=== PATIENT | male | born 1940 | race Caucasian/White ===

== ENCOUNTER 2023-10-25 19:02 | Inpatient (IN) | payer MEDICARE, BC, SELFPAY ==
[2023-10-25 19:05] VITALS: BMI 25.2
--- NOTE | 2023-10-25 19:12 | PM.HP ---
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 Patient stating that 2 days ago he had a horrible oily pizza at that aggravated his symptoms of acid reflux, GERD he was experiencing chest discomfort with fullness and bloating which was not getting better he also felt some pain in his left arm, he tolerated this pain all night, in the morning his convinced him to go to the ER, patient is stating that his real bothering symptoms started 1 month ago with dry hacking cough, he has been tested for COVID which was negative, he has not noticed any fever, malaise, today had 1 loose stool. At the [facility] he was diagnosed with non-STEMI, he has been transferred to our facility for management evaluation of non-STEMI and cardiac cath. Dr. Smith is aware. At the time of my evaluation patient is tachycardic with multiple PVCs on telemetry, no active chest pain, I have removed Nitropaste. He is hemodynamically stable. Patient does not smoke or drink alcohol, no previous history of CHF or coronary artery disease Review of Systems Const: Denies: fever(s) Eyes: Denies: change in vision ENMT: Denies: throat pain Card: Reports: chest pain Resp: Reports: dyspnea GI: Denies: abdominal pain : Denies: flank pain Musc: Denies: neck pain Skin/Breast: Denies: rash PFSH Acute PFSH: Medical History (Updated 10/25/23 @ 19:42 by Dany Brizuela MD) GERD (gastroesophageal reflux disease) Gout Surgical History (Updated 10/25/23 @ 19:43 by Dany Brizuela MD) No pertinent past surgical history Family History (Updated 10/25/23 @ 19:43 by Dany Brizuela MD) Denies family history of CAD (coronary artery disease) Social History (Updated 10/25/23 @ 19:43 by Dany Brizuela MD) Smoking and tobacco/nicotine status: former use of tobacco/nicotine Alcohol intake: never Substance/Drug Use: never Physical Exam Narrative: Awake and alert No active signs of fluid overload GCS 15 No active chest pain Present elderly male Appears stated age No audible stridor or wheezing Currently doing well on room air S1, S2 A&P Assessment and plan (1) NSTEMI (non-ST elevated myocardial infarction): (2) PVC (premature ventricular contraction): Plan Non-STEMI N.p.o. after midnight Dr. Mendiola consulted Will give him starting dose of Plavix 300 mg then maintenance dose Continue aspirin along atorvastatin Request D-dimer A1c level and TSH Serial troponin and EKG Echo requested No active chest pain will do IV morphine along nitroglycerin for as needed use Remove Nitropaste Patient has been experiencing dry hacking cough will request respiratory panel Patient is stating that he tested negative for COVID when he tested at home BNP at at the outside facility was 10,000, will request another clinically does not look fluid overloaded I will hold off on giving him Lasix, will start him normal saline in anticipation of angiogram in the morning N.p.o. after midnight Full code DVT prophylaxis covered with therapeutic Lovenox Attestations Medical Necessity Statement*: More than 2 midnights anticipated Diagnoses NSTEMI (non-ST elevated myocardial infarction) I21.4 PVC (premature ventricular contraction) I49.3
--- NOTE | 2023-10-25 19:15 | ECG_ITS ---
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 Measurements Intervals [place] Rate: 107 P: 3 [place]: 142 QRS: 35 QRSD: 156 T: 29 QT: 364 QTc: 488 Interpretive Statements SINUS TACHYCARDIA WITH OCCASIONAL VENTRICULAR PREMATURE COMPLEXES POSSIBLE LEFT ATRIAL ENLARGEMENT [-0.1mV P-WAVE IN V1/V2] LEFT BUNDLE BRANCH BLOCK [120+ ms QRS DURATION, 80+ ms Q/S IN V1/V2, 85+ ms R IN I/aVL/V5/V6] No previous ECG available for comparison Electronically Signed On 10-26-2023 9:58:52 PROJECT ARCHIVIST by Nathan Smith M.D. [id number]
[2023-10-25 19:54] VITALS: BP 146/90; PULSE 111; RESP 19; TEMP 36.3; O2SAT 96
[2023-10-25] MEDS: clopidogrel 300 mg Tablet PO (20:34)
[2023-10-25] MEDS: enoxaparin 100 mg/mL Syringe 80 MG SUBCUT (20:34)
[2023-10-25 20:36] VITALS: PULSE 107; RESP 16; O2SAT 93
[2023-10-25] MEDS: sodium chloride 0.9% 1,000 ML 75 ML IV (20:38)
--- NOTE | 2023-10-25 20:41 | XRR_ITS ---
PROCEDURE INFORMATION: Exam: XR Chest Exam date and time: 10/25/2023 9:53 PM Age: 83 years old Clinical indication: Patient HX: Cough; SOB; Non stemi mi TECHNIQUE: Imaging protocol: Radiologic exam of the chest. Views: 1 view. COMPARISON: No relevant prior studies available. FINDINGS: Lungs: Fullness in the pulmonary vasculature suggesting volume overload in the lungs. Pleural spaces: Small left pleural effusion. No pneumothorax. Heart/Mediastinum: Cardiac silhouette is markedly enlarged. Mediastinal contours are unremarkable. Vasculature: Stable vascular calcifications in the aorta. Bones/joints: Unremarkable for age. XR/XR chest 1V portable [id number] IMPRESSION: 1. Fullness in the pulmonary vasculature suggesting volume overload in the lungs. 2. Small left pleural effusion. 3. Incidental/nonacute findings are listed in the report.
[2023-10-25 21:25] LABS: Troponin(5th) Baseline 1198 ng/L (0-15)
[2023-10-25] MEDS: guaiFENesin 100 mg/5 mL UDC 10 mL 200 MG PO (21:38)
[2023-10-25 21:47] LABS: Anion Gap 17.2 (5-19); Blood Urea Nitrogen 31 mg/dL (8-23); Calcium 8.8 mg/dL (8.5-10.5); Carbon Dioxide 21 mmol/L (22-29); Chloride 104 mmol/L (98-107); Glucose 104 mg/dL (65-115); NT Pro B Type Natriuretic Pept 7921 pg/mL (0-450); Osmolality Calculated 293 mOsm/kg (285-295); Potassium 4.2 mmol/L (3.5-5.1); Sodium 138 mmol/L (136-145); Thyroid Stimulating Hormone 3.77 uIU/mL (0.27-4.20)
[2023-10-25 22:11] LABS: Estmated Average Glucose 97
[2023-10-25 22:18] LABS: Troponin 5 2HR 1120 ng/L (0-15); Troponin 5 2HR Delta -78 ABS# (0-10)
[2023-10-25 23:02] LABS: Adenovirus Not Detected (NOT DETECT); Chlamydia Pneumoniae Not Detected (NOT DETECT); Coronavirus 229E,HKU1,NL63,OC4 Not Detected (NOT DETECT); Human Metapneumovirus Not Detected (NOT DETECT); Human Rhinovirus/Enterovirus Not Detected (NOT DETECT); Influenza A Not Detected (NOT DETECT); Influenza A H1 Not Detected (NOT DETECT); Influenza A H1-2009 Not Detected (NOT DETECT); Influenza A H3 Not Detected (NOT DETECT); Influenza B Not Detected (NOT DETECT); Mycoplasma Pneumoniae Not Detected (NOT DETECT); Parainfluenza Virus Type 1 Not Detected (NOT DETECT); Parainfluenza Virus Type 2 Not Detected (NOT DETECT); Parainfluenza Virus Type 3 Not Detected (NOT DETECT); Parainfluenza Virus Type 4 Not Detected (NOT DETECT); Respiratory Syncytial Virus A Not Detected (NOT DETECT); Respiratory Syncytial Virus B Not Detected (NOT DETECT); SARS-COV-2 Not Detected (NOT DETECT)
[2023-10-26] VITALS (57 sets, daily range): BP systolic 109–162; BP diastolic 68–105; PULSE 81–124; RESP 16–32; TEMP 36.4–36.8; O2SAT 89–100
[2023-10-26 01:17] LABS: Basophils % 0.1 %; Eosinophils # 0.1 10^3/uL (0.0-0.8); Lymphocytes # 1.3 10^3/uL (0.8-4.8); Lymphocytes % 17.3 %; Mean Corpuscular HGB Conc 33.2 g/dL (30-55); Mean Corpuscular Hemoglobin 31.8 pg (27-33); Mean Corpuscular Volume 95.6 fl (82-101); Mean Platelet Volume 11.3 fL (7.4-10.4); Monocytes # 0.7 10^3/uL (0.2-0.9); Monocytes % 9.7 %; Neutrophils # 5.23 10^3/uL (1.8-7.7); Neutrophils % 71.8 %; Nucleated Red Blood Cells % 0 %; Platelet Count 150 10^3/cmm (157-399); Red Blood Count 3.87 10^6/uL (3.85-5.65); Red Cell Distribution Width 14.5 % (12.1-15.1); White Blood Count 7.29 10^3/uL (3.29-11.43)
--- NOTE | 2023-10-26 01:24 | ECG_ITS ---
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 Measurements Intervals [place] Rate: 98 P: 21 [place]: 164 QRS: 68 QRSD: 160 T: 0 QT: 386 QTc: 495 Interpretive Statements SINUS RHYTHM WITH OCCASIONAL VENTRICULAR PREMATURE COMPLEXES POSSIBLE LEFT ATRIAL ENLARGEMENT [-0.1mV P-WAVE IN V1/V2] INTRAVENTRICULAR CONDUCTION DELAY [130+ ms QRS DURATION] Compared to ECG 10/25/2023 20:40:23 Intraventricular conduction delay now present Sinus tachycardia no longer present Left bundle-branch block no longer present Electronically Signed On 10-26-2023 10:00:34 CLINIQUE COUNTER MANAGER by Nathan Smith M.D. [id number]
[2023-10-26 01:37] LABS: Anion Gap 16.2 (5-19); Blood Urea Nitrogen 32 mg/dL (8-23); Calcium 8.6 mg/dL (8.5-10.5); Carbon Dioxide 21 mmol/L (22-29); Chloride 105 mmol/L (98-107); Glucose 117 mg/dL (65-115); Osmolality Calculated 294 mOsm/kg (285-295); Phosphorus 2.8 mg/dL (2.5-4.5); Potassium 4.2 mmol/L (3.5-5.1); Sodium 138 mmol/L (136-145)
[2023-10-26 01:44] LABS: Troponin 5 6HR 1081 ng/L (0-15); Troponin 5 6HR Delta -117 ng/L (0-12)
[2023-10-26 01:49] LABS: Vitamin B12 > 2000 pg/mL (232-1245)
--- NOTE | 2023-10-26 06:00 | USCV_ITS ---
Evangelist Gale Age: 83 Gender: M : 1940 Exam Date: 10/26/2023 07:07 Ordering Phys: Dayn Brizuela MD Technologist: Alexandru Dahl Exam Location: [facility] [place] Indication: nstemi BP: 130 / 84 HR: 105 Rhythm: Other Technical Quality: Adequate MEASUREMENTS (Male / Female) Normal Values 2D ECHO LVOT Diameter 2.3 cm LV Ejection Fraction MOD 2C 23.4 % LV Ejection Fraction 2C AL 23.9 % LA Diameter 4.0 cm LA Width 4.4 cm LA Height 6.1 cm RA Width 5.1 cm RA Height 5.7 cm Aorta at Sinotubular Diameter 3.0 cm IVC Diameter 2.1 cm M-MODE Aortic Annulus Diameter 3.3 cm LA Ao Ratio MM 1.2 MV E Point Septal Separation 1.4 cm DOPPLER AV Peak Velocity 116.3 cm/s LVOT Peak Velocity 74.0 cm/s AV Area Cont Eq vti 2.3 cm squared AV Area Cont Eq pk 2.6 cm squared MV Peak Velocity 108.0 cm/s MV Area PHT 8.1 cm squared Mitral E to A Ratio 1.6 MV E' Velocity 48.0 cm/s Mitral E to MV E' Ratio 13.2 Mitral E to LV E' Lateral Ratio 8.5 Mitral E to LV E' Septal Ratio 29.5 TR Peak Velocity 318.9 cm/s TR Peak Gradient 40.7 mmHg TR Mean Velocity 235.5 cm/s TR Mean Gradient 26.2 mmHg TR Velocity Time Integral 93.2 cm Right Atrial Pressure 3.0 mmHg Pulmonary Artery Systolic Pressu 43.7 mmHg PV Peak Velocity 73.0 cm/s RV Acceleration Time 0.1 s RV Ejection Time 0.2 s RV AcT/ET 0.4 FINDINGS Left Ventricle Left ventricle is normal in size. LV systolic function is severely reduced with EF of 20 to 25%. Severe global hypokinesis seen. Right Ventricle Grossly hypokinetic Right Atrium Dilated Left Atrium Severely dilated Mitral Valve Structurally normal mitral valve. Moderate to severe mitral regurgitation. Aortic Valve Aortic valve is thickened and calcified. Mild aortic regurgitation. No significant stenosis. Tricuspid Valve Mild tricuspid regurgitation. RVSP is 40 to 45 mmHg. This is consistent with mild pulmonary hypertension Pulmonic Valve Not well-visualized. Mild pulmonic regurgitation. Pericardium Normal Aorta Dilated with ascending aortic diameter of 4.02cm. IVC Appears to be normal CONCLUSIONS LV systolic function is severely reduced with EF of 20 to 25%. RV is grossly hypokinetic. Biatrial enlargement. Moderate to severe mitral regurgitation. Mild aortic regurgitation Mild tricuspid regurgitation. Mild pulmonary hypertension. Mild pulmonic regurgitation Ascending aorta is dilated with diameter of 4.02 cm No comparison studies are available Nathan Smith MD (Electronically Signed) Final Date: 26 October 2023 10:40 S
[2023-10-26] MEDS: enoxaparin 100 mg/mL Syringe 80 MG SUBCUT (06:21)
--- NOTE | 2023-10-26 07:12 | PM.CONSULT ---
Providers/Reason For Consult Consulting Physician/Specialty*: Nathan Smith MD/ Cardiology Reason for Consult*: NSTEMI Requesting Physician: Dr Brizuela Attending Physician: Dany Brizuela MD History of Present Illness History of Present Illness Evangelist Gale is a 83 year old male with no prior significant cardiac history presented to OSH with shortness of breath. According to patient, he had been noticing mild shortness of breath for a month but had significant burning chest pain 2 days before which lasted several hours. Since then has significant shortness of breath. He did not seek medical attention at that time. On presentation his troponin was signifcantly elevated (over 1100 here) and EKG showed sinus tachycardia with left bundle branch block. He was given lasix. Creatinine is elevated. No active chest pain. Review of Systems Const: Denies: fever(s) Eyes: Denies: change in vision ENMT: Denies: throat pain Card: Denies: chest pain Resp: Reports: dyspnea GI: Denies: abdominal pain : Denies: flank pain Musc: Denies: neck pain Skin/Breast: Denies: rash Medications/Allergies Home Medications Medication Instructions Recorded Confirmed Last Taken Type allopurinol 100 mg tablet 100 mg PO BEDTIME 10/25/23 10/25/23 Unknown History cimetidine 200 mg tablet 200 mg PO BEDTIME 10/25/23 10/25/23 Unknown History vit B6-mag cit,ox-potassium cit 2 tab PO BID 10/25/23 10/25/23 Unknown History 3.75 mg-45 mg-45 mg-49.5 mg tablet ER (Theralith XR) Allergies Allergy/AdvReac Type Severity Reaction Status Date / Time No Known Allergies Allergy Verified 10/25/23 20:03 Current Medications Generic Name Dose Route Start Last Admin Trade Name Freq PRN Reason Stop Dose Admin Enoxaparin Sodium 80 mg 10/25/23 19:15 10/26/23 06:21 Enoxaparin 100 Mg/Ml Syringe 1 mg/kg (80 mg) 80 mg SUBCUT Administration Q12H [facility] Guaifenesin 200 mg 10/25/23 20:41 10/25/23 21:38 Guaifenesin 100 Mg/5 Ml Udc 10 Ml PO 200 mg Q4H PRN Administration COUGH AND CONGESTION Sodium Chloride 1,000 mls @ 75 mls/hr 10/25/23 19:45 10/25/23 20:38 Sodium Chloride 0.9% IV 75 mls/hr .[id number] KARAN Administration PFSH Acute PFSH: Medical History GERD (gastroesophageal reflux disease) Gout Surgical History No pertinent past surgical history Family History Denies family history of CAD (coronary artery disease) Social History Smoking and tobacco/nicotine status: former use of tobacco/nicotine Alcohol intake: never Substance/Drug Use: never Vitals/I&O/Wt Last Vital Signs Temp 98.2 F 10/26/23 04:00 Pulse 104 H 10/26/23 06:00 Resp 18 10/26/23 04:00 BP 130/84 10/26/23 04:00 Pulse Ox 96 10/26/23 04:00 O2 Del Method Room Air 10/26/23 04:00 10/25/23 10/26/23 10/26/23 22:59 06:59 14:59 Intake Total 200 / 200 Balance 200 / 200 Weight last 48 hrs Weight 163 lb 9.6 oz Weight 169 lb Weight 165 lb 14.4 oz Physical Exam Const: COMMON NORMALS: patient oriented x3 OTHER: Alert and oriented x 3. Appears visibly short of breath Resp: OTHER: Clear to auscultation. Diminshed air entry Cardio: OTHER: Tachycardia. Grade 3/6 systolic murmur Extremity: NARRATIVE EXTREMITY EXAM: No lower extremity edema Neuro: COMMON NORMALS: patient oriented x3 and no focal motor deficits Data 10/27/23 02:01 10/27/23 02:01 A&P Assessment and plan (1) CHF (congestive heart failure): (2) NSTEMI (non-ST elevated myocardial infarction): Plan Patient's symptoms, troponin and EKG are consistent with delayed NV presentation. We will proceed with coronary angigoram with possibel percutaneous coronary intervention. NPO for now Continue dual antiplatelet therapy with aspirin and plavix Hold off on lasix till angiogram. He is on room air and able to lay down flat. Echo shows severely reduced LV function with moderate to severe mitral regurgitation. Further recommendations based on Cath findings Thank you for involving us with care of this patient. We will continue to follow. Please call with questions Consult Attestations Medical Necessity Statement: Care expected to cross 2 midnights. Coding Level of Care Code Acute Code for [facility] Fwd Diagnoses CHF (congestive heart failure) I50.9 NSTEMI (non-ST elevated myocardial infarction) I21.4
--- NOTE | 2023-10-26 07:52 | XACV_ITS ---
Exam Room: [facility] Ht: 173 cm Wt: 74 kg BSA: 1.89 m2 Gender: Male : 1940 Any Known Allergies: No known allergies Exam Priority: Routine Procedure(s): Procedure Description: Diagnostic procedure Procedure Description: Left Heart Catheterization Procedure Description: Coronary Angiography Diagnostic Cath Status: Urgent Diagnostic Findings * Left Main has no significant disease. * Left Anterior Descending has mild luminal irregularities. * Circumflex is patent. * Proximal Right Coronary Artery: minimal 30% stenosis, SONG: 3 flow. * Coronary angiography shows right dominance. Conclusions 1. Non-obstructive CAD.. 2. NSTEMI vs Myocarditis. Recommendations * Continue dual antiplatelet therapy. We will continue with atorvastatin and beta-eran. * Complete anticoagulation for 48 hours. * Patient may need cardiac MRI to assess for myocarditis. Can be done as outpatient if stable. Interventional RX Recommendation: medical therapy and/or counseling Diagnostic RX Recommendation: medical therapy and/or counseling Pressures Phase:Rest AO : 116 / 63 ( 81 ) @ 10:08:00 AM 111 / 65 ( 82 ) @ 10:17:00 AM 111 / 66 ( 82 ) @ 10:17:00 AM LV : 109 / 0 / 24 @ 10:16:00 AM 110 / 1 / 25 @ 10:17:00 AM Valves Phase:DefaultPhase AV : 2.0 @ 10:21:02 AM AV Mean Gradient: 0.0 @ 10:21:02 AM Clinical Evaluation EBL: 5mL-10mL Procedural Details Pre-Procedure Time Out. Identified patient by full name and date of as verbalized by the patient/guarantor. Does the consent match the physician's order: Yes. Accurate & Complete Informed Consent: Yes. Inpatient/Outpatient History & Physical on Chart: Yes. If H&P is completed, is and addenduem needed: No; If yes, is the addendum complete: N/A. Visualize and Verify Site with Patient/Guarantor: N/A. Relevant Radiology Images available: N/A. Pre-op teaching completed and patient verbalized understanding. The risks, benefits, and alternatives of sedation and/or procedure were discussed by physician. The patient agrees to continue. Procedure started. [facility] Clinical Fraility Score: 3: Managing Well. Explosives Mixer Operator Indications: ACS > 24 hours. Chest Pain Symptom Assessment: Typical Angina Symptoms. Correct patient, site and procedure confirmed by cath team. Current diagnosis: NSTEMI. PERRLA. Strong, equal hand spout positioner bilaterally. Lungs clear x 5 lobes. IV Site on Arrival: 20 gauge in the left anticubital. IV Fluids: 0.9% NaCl at KVO. 50 mL infused prior to labor relations teacher. Pre Procedural Pulses: bilateral radial was 3+. Pre Procedural Pulses: bilateral posterior tibial was 1+. Pre Procedural Pulses: bilateral dorsalis pedis was 1+. Oxygen started at 2liters/min via nasal canula. right groin was prepped with chloroprep then draped in the usual sterile fashion. right radial was prepped with chloroprep then draped in the usual sterile fashion. Baseline sample Acquired. HR: 113 BPM. Physician notified. Physician arrived. Admit Source: In Patient. Physician scrubbed in. Immediate Pre-Procedure Time Out. Correct Patient: Yes; Correct Procedure: Yes; Correct Site: Yes; Correct Patient Position: Yes; Correct Supplies: Yes; Dried Flammable Prep: Yes; Blood Products Available: Yes;. Lidocaine 1% infiltrated to the right radial. Arterial access obtained. A 5 egyptian TIG catheter in over wire. Multiple views taken of left coronary artery. Catheter removed over the exchange wire. A 5 egyptian JR4 catheter in over wire. Multiple views taken of right coronary artery. EDP Sample taken: LV 109/0,24; HR: 94 BPM; SpO2: 99%. Pullback taken: LV 110/1,25; AO 111/65(82); Mean: 0mmHg, Peak to Peak: 2mmHg, SEP: 21sec/min; HR: 94 BPM; SpO2: 98%. Catheter removed over the exchange wire. A TR Band was successful obtaining hemostatsis at the Right Radial artery insertion site. Post Procedure: Pulses reassessed and unchanged. PERRLA. Strong, equal hand spout positioner bilaterally. No VTE prophylaxis required. Medication's Wasted: Lidocaine 1% = 1 mL. Medication's Wasted: Nitro = 49.8 mg. Medication's Wasted: Heparin = 1000 units. Medication's Wasted: Other = Fentanyl 50 mcg. Total IV fluids: 25 mL. Post-op diagnosis: Non-obstructive CAD. Complications: None. Estimated blood loss: 5mL-10mL. Responsiveness - Normal response to verbal stimuli; alert and oriented, PERRLA. Airway - Unaffected, no intervention required; spontaneous ventilation. Circulation: W/N/L, pulses unchanged. Nausea/Vomiting: No. Procedure completed. Patient transferred by bed to 1st floor. Vital chart was stopped. Access Site Site: Right Radial artery Sheath Size: 6 Fr Hemostasis Method: TR Band Hemostasis Success: Successful Procedure Medications Start: 9:59 AM Stop: 9:59 AM Medication: Versed Amount: 1 mg Route: I.V. Start: 9:59 AM Stop: 9:59 AM Medication: Fentanyl Amount: 50 mcg Route: I.V. Start: 10:06 AM Stop: 10:06 AM Medication: Nitrogylcerin Amount: 200 mcg Route: I.A. Start: 10:08 AM Stop: 10:08 AM Medication: Versed Amount: 1 mg Route: I.V. I, the attending physician, have reviewed and verified all procedure medications. Yes, all medications given per verbal order History/Risk Factors Hypertension: No Dyslipidemia: No Peripheral Arterial Disease (PAD): No Myocardial Infarction (NV): No Obesity: No Renal Disease: No Tobacco Use: Former Prior Interventions PCI: No CABG: No Valve Surgery: No Report Signatures Finalized by Nathan Smith MD on 11/02/2023 03:27 PM
[2023-10-26] MEDS: atorvastatin 40 mg Tablet 80 MG PO (09:21)
[2023-10-26] MEDS: clopidogrel 75 mg Tablet PO (09:21)
[2023-10-26] MEDS: diphenhydrAMINE 50 mg Capsule PO (09:21)
[2023-10-26] MEDS: aspirin 325 mg Tablet PO (09:21)
[2023-10-26] MEDS: pantoprazole DR 40 mg Tablet PO ×2 (09:21→18:14)
[2023-10-26] MEDS: sodium chloride 0.9% 1,000 ML 75 ML IV (09:23)
--- NOTE | 2023-10-26 10:25 | W.PM.OPSUD ---
Surgery/Procedure H&P Update DATE OF PROCEDURE: October 26, 2023 DATE H&P PERFORMED: 10/26/23 H&P UPDATE INFORMATION: I have reviewed H&P completed within last 30 days, I have examined patient prior to procedure and No changes to prior documentation PREOP DIAGNOSIS: NSTEMI PRIMARY INDICATION FOR PROCEDURE: NSTEMI PLANNED PROCEDURE: Left heart cath with possible percutaneous coronary intervention PATIENT REASSESSED PRIOR TO SEDATION, WITH NO CHANGE NOTED: Yes PHYSICAL EXAM: alert, oriented x 3, clear to auscultation bilaterally and regular rate & rhythm AIRWAY EVAL/ANESTHESIA PLAN: normal airway, ASA III, Local Anesthesia, Risks, benefits & alternatives of sedation and/or procedure discussed and Patient agrees to continue as planned ADDITIONAL INFORMATION: Moderate sedation
--- NOTE | 2023-10-26 14:16 | P.PN_ITS ---
Subjective 2 Subjective: Seen this am no acute events overnight denies cp, sob this am going for cath at 10 am today Vitals/I&O/Wt Last Vital Signs Temp 98.2 F 10/26/23 04:00 Pulse 111 H 10/26/23 09:30 Resp 16 10/26/23 08:00 BP 155/105 10/26/23 13:30 Pulse Ox 97 10/26/23 13:30 O2 Del Method Room Air 10/26/23 08:00 10/25/23 10/26/23 10/26/23 22:59 06:59 14:59 Intake Total 200 / 200 956.25 / 956.25 Balance 200 / 200 956.25 / 956.25 Weight last 48 hrs Weight 74.208 kg Weight 76.657 kg Weight 75.251 kg Physical Exam 2 Narrative: Awake and alert No active signs of fluid overload GCS 15 No active chest pain Present elderly male Appears stated age No audible stridor or wheezing Currently doing well on room air S1, S2 Data 10/26/23 01:10 10/26/23 01:10 A&P Assessment and plan (1) NSTEMI (non-ST elevated myocardial infarction): (2) PVC (premature ventricular contraction): Plan Non-STEMI N.p.o. after midnight Dr. Mendiola consulted continue Plavix 75 mg daily Continue aspirin along atorvastatin Request D-dimer A1c level and TSH Serial troponin and EKG Echo requested No active chest pain will do IV morphine along nitroglycerin for as needed use CATH AT 10 AM today Patient has been experiencing dry hacking cough will request respiratory panel - negative Patient is stating that he tested negative for COVID when he tested at home BNP at at the outside facility was 10,000, repeat BNP here 7000, but appears euvolemic N.p.o. after midnight Full code DVT prophylaxis covered with therapeutic Lovenox Attestations 2 Medical Necessity Statement*: More than 2 midnights anticipated Diagnoses NSTEMI (non-ST elevated myocardial infarction) I21.4 PVC (premature ventricular contraction) I49.3
[2023-10-26] MEDS: FUROsemide 10 mg/mL SDV 2mL 20 MG IVP ×2 (15:01→18:14)
[2023-10-26] MEDS: enoxaparin 80 mg/0.8 mL Syringe SUBCUT (18:14)
--- NOTE | 2023-10-26 19:44 | PC.NURSE ---
Pt voiding with Lasix however he continues to go to the bathroom and void in the commode. I hav instructed him a couple of times now to please void in the urinal so we can measure his urine output. Pt stated understanding but says that he feels that he needs to have a BM as well and that his stomach is a little queezy and he just does it all in the bathroom. Pt acknowledging voiding in the toilet and stated that he has gone severeal times. Best guess is around 800ml voided in the toilet as he finally used the urinal once and it had 200ml and the pt said he probably went the same amount every time.
[2023-10-27] VITALS (13 sets, daily range): BP systolic 109–132; BP diastolic 76–89; PULSE 90–102; RESP 16–31; TEMP 36.5–36.6; O2SAT 20–100
[2023-10-27] MEDS: morphine 4 mg/mL SDV 1 mL 2 MG IVP ×2 (00:51→21:49)
[2023-10-27 02:46] LABS: Basophils % 0.1 %; Eosinophils % 0.4 %; Hematocrit 35.4 % (37-53); Lymphocytes % 12.2 %; Mean Corpuscular HGB Conc 32.5 g/dL (30-55); Mean Corpuscular Hemoglobin 31.3 pg (27-33); Mean Corpuscular Volume 96.5 fl (82-101); Mean Platelet Volume 10.7 fL (7.4-10.4); Monocytes # 0.7 10^3/uL (0.2-0.9); Monocytes % 8.8 %; Neutrophils # 6.43 10^3/uL (1.8-7.7); Neutrophils % 78.1 %; Nucleated Red Blood Cells % 0 %; Platelet Count 126 10^3/cmm (157-399); Red Blood Count 3.67 10^6/uL (3.85-5.65); Red Cell Distribution Width 14.4 % (12.1-15.1); White Blood Count 8.22 10^3/uL (3.29-11.43)
[2023-10-27 03:04] LABS: Anion Gap 14.1 (5-19); Blood Urea Nitrogen 40 mg/dL (8-23); Calcium 8.2 mg/dL (8.5-10.5); Carbon Dioxide 21 mmol/L (22-29); Chloride 106 mmol/L (98-107); Glucose 103 mg/dL (65-115); Osmolality Calculated 294 mOsm/kg (285-295); Potassium 4.1 mmol/L (3.5-5.1); Sodium 137 mmol/L (136-145)
[2023-10-27] MEDS: enoxaparin 80 mg/0.8 mL Syringe SUBCUT ×2 (06:13→18:25)
[2023-10-27] MEDS: aspirin 81 mg EC Tablet PO (08:54)
[2023-10-27] MEDS: metoprolol tartrate 25 mg Tablet 12.5 MG PO ×2 (08:54→20:29)
[2023-10-27] MEDS: atorvastatin 40 mg Tablet 80 MG PO (08:55)
[2023-10-27] MEDS: clopidogrel 75 mg Tablet PO (08:55)
[2023-10-27] MEDS: pantoprazole DR 40 mg Tablet PO ×2 (08:59→18:25)
--- NOTE | 2023-10-27 11:49 | P.PN_ITS ---
Subjective 2 Subjective: Patient had coronary angiogram yesterday that showed patent coronary arteries. Today feeling better. No chest pain. Breathing has improved. Vitals/I&O/Wt Last Vital Signs Temp 97.8 F 10/27/23 09:14 Pulse 102 H 10/27/23 09:14 Resp 19 H 10/27/23 09:14 BP 124/79 10/27/23 09:14 Pulse Ox 100 10/27/23 09:14 O2 Del Method Nasal Cannula 10/27/23 09:14 O2 Flow Rate 2 10/27/23 08:05 10/26/23 10/27/23 10/27/23 22:59 06:59 14:59 Intake Total 1480 / 2436.25 500 / 2936.25 240 / 240 Output Total 500 / 500 400 / 900 Balance 980 / 1936.25 100 / 2036.25 240 / 240 Weight last 48 hrs Weight 162 lb Weight 163 lb 9.6 oz Weight 169 lb Weight 165 lb 14.4 oz Physical Exam 2 Narrative: GENERAL: Patient is alert, awake and oriented x3. NECK: No jugular vein distension. [] HEENT: No cyanosis. No icterus. No pallor. [] HEART: Regular S1 and S2. Grade 3/6 systolic murmur LUNGS: Clear to auscultate bilaterally. [] CENTRAL NERVOUS SYSTEM: Grossly nonfocal. [] EXTREMITIES: Lower extremities with no edema Data 10/27/23 02:01 10/27/23 02:01 A&P Assessment and plan (1) CHF (congestive heart failure): (2) NSTEMI (non-ST elevated myocardial infarction): (3) POLO (acute kidney injury): (4) Mitral regurgitation: Plan Patient's coronary angiogram did not reveal significant CAD. However his presentation is consistent with non-ST elevation [place]. May have resolved thrombosis versus myocarditis. We will continue to with dual antiplatelet therapy with aspirin and Plavix. We will also optimize heart failure medications. Starting low-dose metoprolol today. Once renal function stabilizes, will start losartan or Entresto Patient has severely reduced LV systolic function. Will need LifeVest at time of discharge. Also has left bundle branch block. In case it does not improve cardiac function in 3 months, will benefit from LANDSCAPE ACCOUNT MANAGER-D. Patient also has moderate to severe mitral regurgitation. This will need further evaluation.Will benefit from CHRISS and if severe referral to CT surgery. Thank you for involving us with care of this patient. We will continue to follow. Please call with questions Attestations 2 Medical Necessity Statement*: Care expected to cross 2 midnights. Coding Level of Care Code Acute Code for [facility] Fwd Diagnoses CHF (congestive heart failure) I50.9 NSTEMI (non-ST elevated myocardial infarction) I21.4 POLO (acute kidney injury) N17.9 Mitral regurgitation I34.0
--- NOTE | 2023-10-27 13:01 | P.PN_ITS ---
Subjective 2 Subjective: Seen this morning. Patient sitting up in chair eating. He states that he is aware he will be getting a LifeVest at time of discharge. He said he saw the splicer machine operator before I walked in the room. Denies chest pain, shortness of breath. Vitals/I&O/Wt Last Vital Signs Temp 97.8 F 10/27/23 09:14 Pulse 102 H 10/27/23 09:14 Resp 19 H 10/27/23 09:14 BP 124/79 10/27/23 09:14 Pulse Ox 100 10/27/23 09:14 O2 Del Method Nasal Cannula 10/27/23 09:14 O2 Flow Rate 2 10/27/23 08:05 10/26/23 10/27/23 10/27/23 22:59 06:59 14:59 Intake Total 1480 / 2436.25 500 / 2936.25 240 / 240 Output Total 500 / 500 400 / 900 Balance 980 / 1936.25 100 / 2036.25 240 / 240 Weight last 48 hrs Weight 73.482 kg Weight 74.208 kg Weight 76.657 kg Weight 75.251 kg Physical Exam 2 Narrative: Awake and alert GCS 15 No active chest pain Present elderly male Appears stated age No audible stridor or wheezing Currently doing well on room air S1, S2 Data 10/27/23 02:01 10/27/23 02:01 A&P Assessment and plan (1) NSTEMI (non-ST elevated myocardial infarction): (2) PVC (premature ventricular contraction): (3) Mitral regurgitation: (4) CHF (congestive heart failure): (5) Low left ventricular ejection fraction: (6) Biatrial enlargement: (7) Severe mitral regurgitation: (8) Ascending aorta dilation: (9) POLO (acute kidney injury): Plan Non-STEMI New onset systolic heart failure with reduced EF of 20 to 25% Severe mitral regurgitation Ascending aorta dilatation 4 cm Dry hacking cough ? Patient admitted for NSTEMI and was placed on ACS protocol. He underwent cardiac catheterization on 10/26/2023 which showed patent coronary arteries. ? Medically manage, aspirin 81 daily, Plavix 75 daily, metoprolol 12.5 twice daily, atorvastatin 80 daily ? Will need to optimize heart failure medications ? Patient will require LifeVest at discharge. Order has been placed. If cardiac function does not improve in 3 months he will benefit from [employer]?D. ? Patient will benefit from CHRISS for evaluation of mitral regurgitation. He may require referral to CT surgery at discharge. ? Cardiology recommendations appreciated. ? Will require close follow-up with cardiology as an outpatient after discharge ? Respiratory viral panel negative. COVID-negative. BNP 10,000. Repeat BNP 7000. Patient appears euvolemic at this time. Patient did receive 40 mg IV Lasix yesterday. Stop IV fluids. ? DuoNeb every 6 hours as needed POLO on CKD ? Patient has contrast during this hospital stay. Received gentle hydration. ? Check urine protein, creatinine ? Check UA - Check renal ultrasound Full code DVT prophylaxis: therapeutic Lovenox Attestations 2 Medical Necessity Statement*: Continue to manage patient for severe mitral regurgitation, NSTEMI, new onset heart failure. Diagnoses NSTEMI (non-ST elevated myocardial infarction) I21.4 PVC (premature ventricular contraction) I49.3 Mitral regurgitation I34.0 CHF (congestive heart failure) I50.9 Low left ventricular ejection fraction R94.30 Biatrial enlargement I51.7 Severe mitral regurgitation I34.0 Ascending aorta dilation I77.810 POLO (acute kidney injury) N17.9
--- NOTE | 2023-10-27 13:23 | USR_ITS ---
PROCEDURE INFORMATION: Exam: US Retroperitoneal; Complete; Kidneys and Bladder Exam date and time: 10/27/2023 2:22 PM Age: 83 years old Clinical indication: Abnormal findings; Abnormal lab test; Abnormal kidney function lab tests; Additional info: Chaitanya TECHNIQUE: Imaging protocol: Real-time ultrasound of the retroperitoneum with image documentation. Complete exam focused on the kidneys and bladder. COMPARISON: No relevant prior studies available. FINDINGS: Right kidney: Normal. No stones. No hydronephrosis. Measures 10.8 cm. Left kidney: Normal. No stones. No hydronephrosis. Measures 11.9 cm. Urinary bladder: Unremarkable. Incidental note is made cyst in the liver measuring up to 4.9 cm. US/US renal BI* [id number] IMPRESSION: Unremarkable kidneys and bladder.
[2023-10-27] MEDS: FUROsemide 10 mg/mL SDV 2mL 20 MG IVP (15:35)
[2023-10-28] VITALS (10 sets, daily range): BP systolic 102–126; BP diastolic 66–88; PULSE 81–110; RESP 16–27; TEMP 36.5–36.8; O2SAT 95–100
[2023-10-28] MEDS: heparin 5,000 unit/mL INJ 1 mL 5000 UNIT SUBCUT ×2 (05:38→17:34)
--- NOTE | 2023-10-28 07:56 | P.PN_ITS ---
Subjective 2 Subjective: Patient continues having on and off shortness of breath episodes. Renal function is stable compared to yesterday. Vitals/I&O/Wt Last Vital Signs Temp 98.3 F 10/28/23 04:00 Pulse 90 10/28/23 07:48 Resp 18 10/28/23 07:48 BP 123/86 10/28/23 04:00 Pulse Ox 95 10/28/23 07:48 O2 Del Method Nasal Cannula 10/28/23 07:48 O2 Flow Rate 2 10/28/23 07:48 10/27/23 10/28/23 10/28/23 22:59 06:59 14:59 Intake Total 240 / 960 200 / 1160 Output Total 150 / 150 100 / 250 Balance 90 / 810 100 / 910 Weight last 48 hrs Weight 162 lb 11.2 oz Weight 162 lb Physical Exam 2 Narrative: GENERAL: Patient is alert, awake and oriented x3. NECK: No jugular vein distension. [] HEENT: No cyanosis. No icterus. No pallor. [] HEART: Regular S1 and S2. Grade 3/6 systolic murmur LUNGS: Clear to auscultate bilaterally. [] CENTRAL NERVOUS SYSTEM: Grossly nonfocal. [] EXTREMITIES: Lower extremities with no edema Data 10/28/23 08:50 10/28/23 08:50 A&P Assessment and plan (1) CHF (congestive heart failure): (2) NSTEMI (non-ST elevated myocardial infarction): (3) POLO (acute kidney injury): (4) Mitral regurgitation: Plan Patient's volume status is difficult to assess. Lungs are clear however he gets on and off shortness of breath. Will proceed with right heart cath to better assess it. If her cardiac output and index are significantly low, we will proceed with dobutamine drip and diuresis based on right heart cath numbers. Continue dual antiplatelet therapy and atorvastatin. LifeVest ordered. Awaiting placement. Thank you for involving us with care of this patient. We will continue to follow. Please call with questions. Attestations 2 Medical Necessity Statement*: Care expected to cross 2 midnights. Coding Level of Care Code Acute Code for [facility] Diagnoses CHF (congestive heart failure) I50.9 NSTEMI (non-ST elevated myocardial infarction) I21.4 POLO (acute kidney injury) N17.9 Mitral regurgitation I34.0
[2023-10-28] MEDS: clopidogrel 75 mg Tablet PO (08:43)
[2023-10-28] MEDS: aspirin 81 mg EC Tablet PO (08:43)
[2023-10-28] MEDS: atorvastatin 40 mg Tablet 80 MG PO (08:43)
[2023-10-28] MEDS: metoprolol tartrate 25 mg Tablet PO ×2 (08:44→22:15)
[2023-10-28] MEDS: pantoprazole DR 40 mg Tablet PO ×2 (08:44→17:34)
[2023-10-28] MEDS: sennosides-docusate Tablet 1 TAB PO (08:47)
[2023-10-28 09:23] LABS: Hematocrit 40.8 % (37-53); Mean Corpuscular HGB Conc 32.4 g/dL (30-55); Mean Corpuscular Hemoglobin 31.7 pg (27-33); Mean Corpuscular Volume 97.8 fl (82-101); Mean Platelet Volume 11.6 fL (7.4-10.4); Platelet Count 165 10^3/cmm (157-399); Red Blood Count 4.17 10^6/uL (3.85-5.65); Red Cell Distribution Width 14.6 % (12.1-15.1)
--- NOTE | 2023-10-28 09:31 | XACV_ITS ---
Exam Room: [facility] Ht: 173 cm Wt: 74 kg BSA: 1.89 m2 Gender: Male : 1940 Any Known Allergies: No known allergies Exam Priority: Routine Procedure(s): Procedure Description: Diagnostic procedure Procedure Description: Right Heart Catheterization Diagnostic Cath Status: Elective Diagnostic Findings * INDICATION: Patient had coronary angiogram performed over the weekend however coronary arteries are patent. LV systolic function is severely reduced with EF of 20 to 25%. His volume status is difficult to assess as lungs are clear but he has on and off significant shortness of breath episodes. Plan for right heart cath to better assess volume status and adjust diuretic therapy. * Right heart cath findings: RA pressure: 16/12 mean 11 mmHgRV pressure: 53/5 mean 18 mmHgPA pressure: 61/28 mean 39 mmHgPCW: 22/23 mean 21 mmHgWedge sat: 79%PA sat: 34%RA sat: 35%Cardiac output: 3.14 L/minCardiac index: 1.7 L/min/m2 TP mmHg PVR: 5.73 Wood units. . Conclusions 1. Low cardiac output and cardiac index. 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 Elevated right and left sided cardiac pressures. Recommendations * We will start low dose dobutamine and diurese.. * Transfer back to cardiac stepdown unit. Diagnostic RX Recommendation: medical therapy and/or counseling Pressures Phase:Rest RV : 53 / 5 / 18 @ 10:22:00 AM PA : 61 / 28 ( 39 ) @ 10:20:00 AM RA : a wave = 16 v wave = 12 mean = 11 @ 10:23:00 AM PCW : a wave = 22 v wave = 23 mean = 21 @ 10:19:00 AM O2 Content Phase:Rest PA : O2 Content O2: 33.5 @ 10:19:00 AM Saturations Phase:Rest RA : 35 @ 10:23:00 AM PA : 34 @ 10:19:00 AM PCW : 79 @ 10:20:00 AM Cardiac Output Phase:Rest Telly : 3 @ 10:53:21 AM Telly Cardiac Index: 2 @ 10:53:21 AM Flow Phase:Rest Qp : 3 @ 10:53:21 AM Clinical Evaluation EBL: 5mL-10mL Procedural Details Procedure Consent Obtained. Pre-Procedure Time Out. Identified patient by full name and date of as verbalized by the patient/guarantor. Does the consent match the physician's order: Yes. Accurate & Complete Informed Consent: Yes. Inpatient/Outpatient History & Physical on Chart: Yes. If H&P is completed, is and addenduem needed: N/A; If yes, is the addendum complete: N/A. Visualize and Verify Site with Patient/Guarantor: N/A. Relevant Radiology Images available: N/A. Pre-op teaching completed and patient verbalized understanding. The risks, benefits, and alternatives of sedation and/or procedure were discussed by physician. The patient agrees to continue. Procedure started. [facility] Clinical Fraility Score: 4: Vulnerable. Workers' Compensation Commissioner Indications: Other: LV Dysfunction/CHF. Chest Pain Symptom Assessment: Asymptomatic. Cardiovascular Instability: Yes, if yes, Acute Heart Failure. Correct patient, site and procedure confirmed by cath team. PERRLA. Strong, equal hand buyer bilaterally. Lungs clear x 5 lobes. IV Site on Arrival: 20 gauge in the left anticubital. A 20 gauge IV was started in the right anticubital using aseptic technique. IV Fluids: 0.9% NaCl at KVO. 300 mL infused prior to supervisor labor gang. Pre Procedural Pulses: bilateral radial was 2+. Pre Procedural Pulses: bilateral dorsalis pedis was 2+. Oxygen started at 3liters/min via nasal canula. right groin was prepped with chloroprep then draped in the usual sterile fashion. right brachial was prepped with chloroprep then draped in the usual sterile fashion. Baseline sample Acquired. HR: 103 BPM. Physician notified. Patient's family unavailable. Physician arrived. Physician scrubbed in. Immediate Pre-Procedure Time Out. Correct Patient: Yes; Correct Procedure: Yes; Correct Site: Yes; Correct Patient Position: Yes; Correct Supplies: Yes; Dried Flammable Prep: Yes; Blood Products Available: N/A;. Lidocaine 1% infiltrated to the right brachial. Oxygen turned off at this time for RHC. Gerry-Sam MON catheter inserted. White Bird wire inserted into Gerry-Sam catheter to position. White Bird wire out. PA saturation drawn. Catheter repositioned to the PCW. PCW saturation drawn. RA saturation drawn. AO saturation 92% per pulse ox. Pressure measurements obtained. ABG sent with RT. Gerry-Sam out. Physician scrubbed out. Post-op diagnosis: Mildly elevated Left and Right sided cardiac pressures. Sheath(s) removed and manual pressure held until hemostasis was achieved. Sterile 4x4 and Op-site applied to the puncture site. No oozing or hematoma noted. Post sheath removal instructions were given and the patient verbalized understanding. A Manual Compression was successful obtaining hemostatsis at the Right Brachial Vein insertion site. Post Procedure: Pulses reassessed and unchanged. PERRLA. Strong, equal hand buyer bilaterally. No VTE prophylaxis required. Medication's Wasted: Other = Fentanyl 75 mcg. Medication's Wasted: Other = Versed 1 mg. Medication's Wasted: Heparin = 1000 u. Total IV fluids: 30 mL. Complications: none. Estimated blood loss: 5mL-10mL. Responsiveness - Normal response to verbal stimuli; alert and oriented, PERRLA. Airway - Unaffected, no intervention required; spontaneous ventilation. Circulation: W/N/L, pulses unchanged. Nausea/Vomiting: No. Procedure completed. Patient transferred by bed to 1st floor. Vital chart was stopped. Access Site Site: Right Brachial Vein Sheath Size: 6 Fr Hemostasis Method: Manual Compression Hemostasis Success: Successful Procedure Medications Start: 10:06 AM Stop: 10:06 AM Medication: Versed Amount: 1 mg Route: I.V. Start: 10:06 AM Stop: 10:06 AM Medication: Fentanyl Amount: 25 mcg Route: I.V. I, the attending physician, have reviewed and verified all procedure medications. Yes, all medications given per verbal order History/Risk Factors Hypertension: No Dyslipidemia: No Peripheral Arterial Disease (PAD): No Myocardial Infarction (HI): No Obesity: No Renal Disease: No Tobacco Use: Former Prior Interventions PCI: No CABG: No Valve Surgery: No Report Signatures Finalized by Nathan Smith MD on 11/02/2023 03:58 PM
[2023-10-28 09:38] LABS: Anion Gap 17.2 (5-19); Blood Urea Nitrogen 43 mg/dL (8-23); Carbon Dioxide 23 mmol/L (22-29); Chloride 98 mmol/L (98-107); Glucose 160 mg/dL (65-115); Osmolality Calculated 292 mOsm/kg (285-295); Potassium 4.2 mmol/L (3.5-5.1); Sodium 134 mmol/L (136-145)
--- NOTE | 2023-10-28 09:56 | PC.NURSE ---
to cardiac cardiac cath lab manager via w/c at this time
--- NOTE | 2023-10-28 10:00 | W.PM.OPSUD ---
Surgery/Procedure H&P Update DATE OF PROCEDURE: October 28, 2023 DATE H&P PERFORMED: 10/26/23 H&P UPDATE INFORMATION: I have reviewed H&P completed within last 30 days, I have examined patient prior to procedure and Changes to prior documentation as noted here CHANGES TO PREVIOUS DOCUMENTATION: Patient had coronary angiogram performed over the weekend however coronary arteries are patent. LV systolic function is severely reduced with EF of 20 to 25%. His volume status is difficult to assess as lungs are clear but he has on and off significant shortness of breath episodes. Plan for right heart cath to better assess volume status and adjust diuretic therapy PREOP DIAGNOSIS: Congestive heart failue/ LV dysfunction PRIMARY INDICATION FOR PROCEDURE: Congestive heart failure/LV dysfunction PLANNED PROCEDURE: Right heart catheterization PATIENT REASSESSED PRIOR TO SEDATION, WITH NO CHANGE NOTED: Yes PHYSICAL EXAM: alert, oriented x 3, clear to auscultation bilaterally and regular rate & rhythm AIRWAY EVAL/ANESTHESIA PLAN: normal airway, ASA III, Local Anesthesia, Risks, benefits & alternatives of sedation and/or procedure discussed and Patient agrees to continue as planned ADDITIONAL INFORMATION: Moderate sedation
[2023-10-28 10:41] LABS: Arterial Blood Gas Hematocrit 37.9 % (42-52); Blood Gas Sample Site Not specified; Blood Gas Sample Type Not specified; Carboxyhemoglobin 1.2 %THgb (0.4-20.1); HGB O2 Sat 77.3 % (95-100); Methemoglobin 0.4 % (0.4-1.5); Oxygen Device ROOM AIR; Total Hemoglobin 12.4 g/dL (14-18)
[2023-10-28 10:44] LABS: Arterial Blood Gas Hematocrit 38.6 % (42-52); Blood Gas Sample Site Not specified; Blood Gas Sample Type Not specified; Carboxyhemoglobin 0.9 %THgb (0.4-20.1); HGB O2 Sat 34.8 % (95-100); Methemoglobin 0.4 % (0.4-1.5); Oxygen Device ROOM AIR; Total Hemoglobin 12.6 g/dL (14-18)
[2023-10-28 10:45] LABS: Arterial Blood Gas Hematocrit 38.2 % (42-52); Blood Gas Operator Identificat PULM ART; Blood Gas Sample Site Not specified; Blood Gas Sample Type Not specified; Carboxyhemoglobin 0.8 %THgb (0.4-20.1); HGB O2 Sat 33.1 % (95-100); Methemoglobin 0.5 % (0.4-1.5); Oxygen Device ROOM AIR; Total Hemoglobin 12.5 g/dL (14-18)
--- NOTE | 2023-10-28 10:50 | PC.NURSE ---
return from cardiac orthodontic lab technician via bed at 1045.report received.pt is awake and alert.denies pain at present.sr on monitor.right brachial vein with drsg dry and intact.right lower arm is warm to touch and with brisk capillary refill.palpable radial pulse noted.no hematom noted.vss.instructed pt to notify staff for any bleeding,pain,numbness...or for any concerns at all.pt verb understanding of instructions.
[2023-10-28 11:03] LABS: Total Cells Counted 100 (0-100)
[2023-10-28 11:07] LABS: Absolute Segmented Neutrophil 8.2 10/cmm (1.6-7.1); Segmented Neutrophils 81 %
[2023-10-28 11:08] LABS: Absolute Neutrophil 8.2 10^3/cmm (1.4-6.5); Eosinophils 0 %; Lymphocytes 16 %; Lymphocytes Absolute 1.7 10^3/cmm (1.2-3.4); Monocytes Absolute 0.2 10^3/cmm (0.1-0.6); Platelet Estimate Decreased (Normal)
--- NOTE | 2023-10-28 11:34 | P.PN_ITS ---
Subjective 2 Subjective: Patient went for right heart cath today Patient still gets short of breath on laying flat Vitals/I&O/Wt Last Vital Signs Temp 97.9 F 10/28/23 09:48 Pulse 104 H 10/28/23 09:48 Resp 24 H 10/28/23 09:48 BP 126/85 10/28/23 09:48 Pulse Ox 95 10/28/23 09:48 O2 Del Method Nasal Cannula 10/28/23 09:48 O2 Flow Rate 2 10/28/23 07:48 10/27/23 10/28/23 10/28/23 22:59 06:59 14:59 Intake Total 240 / 960 200 / 1160 Output Total 150 / 150 100 / 250 150 / 150 Balance 90 / 810 100 / 910 -150 / -150 Weight last 48 hrs Weight 73.799 kg Weight 73.482 kg Physical Exam 2 Narrative: mild signs of fluid overload GCS 15 Currently on room air Hemodynamically stable GCS 15 Nonfocal neuroexam Pleasant cooperative S1, S2 Data 10/28/23 08:50 10/28/23 08:50 A&P Assessment and plan (1) CHF (congestive heart failure): (2) Biatrial enlargement: (3) Non-ischemic cardiomyopathy: (4) Mitral regurgitation: (5) Severe mitral regurgitation: (6) NSTEMI (non-ST elevated myocardial infarction): (7) PVC (premature ventricular contraction): (8) Ascending aorta dilation: (9) Low left ventricular ejection fraction: (10) POLO (acute kidney injury): Plan Plan for right heart cath today Patient is still getting short of breath on minimal activity and sometimes endorse orthopnea PND No active chest pain Patient has valvular regurgitation, ascending aortic aneurysm He will need outpatient vascular follow-up Full code POLO creatinine plateaued at 1.6, monitor closely for any worsening, patient going for angiogram today as well LifeVest has been ordered for nonischemic cardiomyopathy DVT prophylaxis on board IV fluids discontinued last night Attestations 2 Medical Necessity Statement*: Right heart cath today Diagnoses CHF (congestive heart failure) I50.9 Biatrial enlargement I51.7 Non-ischemic cardiomyopathy I42.8 Mitral regurgitation I34.0 Severe mitral regurgitation I34.0 NSTEMI (non-ST elevated myocardial infarction) I21.4 PVC (premature ventricular contraction) I49.3 Ascending aorta dilation I77.810 Low left ventricular ejection fraction R94.30 POLO (acute kidney injury) N17.9
--- NOTE | 2023-10-28 16:26 | PM.PROC ---
Procedure Note: Date of procedure: 10/28/23 Pre-procedure diagnosis: Acute congestive heart failure Post-procedure diagnosis: same Procedure: Right heart cath findings: RA pressure: 16/12 mean 11 mmHg RV pressure: 53/5 mean 18 mmHg PA pressure: 61/28 mean 39 mmHg PCW: /23 mean 21 mmHg Wedge sat: 79% PA sat: 34% RA sat: 35% Cardiac output: 3.14 L/min Cardiac index: 1.7 L/min/m? Conclusion: Low cardiac output and cardiac index. Elevated right and left sided cardiac pressures We will start low dose dobutamine and diurese. Performing Provider: Nathan Smith Estimated blood loss (mL): 10 Complications: None Coding Level of Care Code Acute Code for [facility]
[2023-10-28] MEDS: DOBUTamine drip 500 MG/250 ML PREMIX 5.54 MG IV (17:04)
[2023-10-28] MEDS: FUROsemide 10 mg/mL SDV 4mL 40 MG IVP (17:04)
[2023-10-29] VITALS (12 sets, daily range): BP systolic 86–130; BP diastolic 55–78; PULSE 88–119; RESP 14–22; TEMP 36.5–36.7; O2SAT 94–100
[2023-10-29 04:35] LABS: Basophils % 0.3 %; Eosinophils # 0.1 10^3/uL (0.0-0.8); Eosinophils % 0.8 %; Hematocrit 34.4 % (37-53); Lymphocytes # 1.2 10^3/uL (0.8-4.8); Lymphocytes % 15.3 %; Mean Corpuscular HGB Conc 32.8 g/dL (30-55); Mean Corpuscular Hemoglobin 31.7 pg (27-33); Mean Corpuscular Volume 96.6 fl (82-101); Mean Platelet Volume 11.8 fL (7.4-10.4); Monocytes # 0.7 10^3/uL (0.2-0.9); Monocytes % 8.6 %; Neutrophils # 5.87 10^3/uL (1.8-7.7); Neutrophils % 74.9 %; Nucleated Red Blood Cells % 0 %; Platelet Count 122 10^3/cmm (157-399); Red Blood Count 3.56 10^6/uL (3.85-5.65); Red Cell Distribution Width 14.5 % (12.1-15.1); White Blood Count 7.83 10^3/uL (3.29-11.43)
[2023-10-29 05:00] LABS: Anion Gap 14.8 (5-19); Blood Urea Nitrogen 44 mg/dL (8-23); Calcium 8.4 mg/dL (8.5-10.5); Carbon Dioxide 24 mmol/L (22-29); Chloride 103 mmol/L (98-107); Glucose 83 mg/dL (65-115); Osmolality Calculated 296 mOsm/kg (285-295); Potassium 3.8 mmol/L (3.5-5.1); Sodium 138 mmol/L (136-145)
[2023-10-29] MEDS: heparin 5,000 unit/mL INJ 1 mL 5000 UNIT SUBCUT ×2 (06:14→17:59)
--- NOTE | 2023-10-29 08:02 | P.PN_ITS ---
Subjective 2 Subjective: Patient is feeling better. Urine output has improved. Vitals/I&O/Wt Last Vital Signs Temp 97.9 F 10/29/23 03:32 Pulse 103 H 10/29/23 06:00 Resp 19 H 10/29/23 04:11 BP 121/76 10/29/23 04:11 Pulse Ox 94 10/29/23 03:32 O2 Del Method Room Air 10/29/23 03:32 O2 Flow Rate 2 10/28/23 07:48 FiO2 2 10/28/23 20:11 10/28/23 10/29/23 10/29/23 22:59 06:59 14:59 Intake Total 970 / 970 175 / 1145 Output Total 600 / 750 0 / 750 Balance 370 / 220 175 / 395 Weight last 48 hrs Weight 164 lb 8 oz Weight 162 lb 11.2 oz Physical Exam 2 Narrative: GENERAL: Patient is alert, awake and oriented x3. NECK: No jugular vein distension. [] HEENT: No cyanosis. No icterus. No pallor. [] HEART: Regular S1 and S2. Grade 3/6 systolic murmur LUNGS: Clear to auscultate bilaterally. [] CENTRAL NERVOUS SYSTEM: Grossly nonfocal. [] EXTREMITIES: Lower extremities with no edema Data 10/30/23 03:55 10/30/23 03:55 A&P Assessment and plan (1) CHF (congestive heart failure): (2) NSTEMI (non-ST elevated myocardial infarction): (3) POLO (acute kidney injury): (4) Mitral regurgitation: Plan Right heart cath that showed significantly low cardiac index and elevated right and left-sided cardiac pressures. Patient was started on dobutamine drip and diuresed. He is feeling much better today. We will continue with dobutamine drip today. Continue dual antiplatelet therapy, atorvastatin and beta-eran. Patient is awaiting LifeVest placement. Thank you for involving us with care of this patient. We will continue to follow. Please call with questions. Attestations 2 Medical Necessity Statement*: Care expected to cross 2 midnights. Coding Level of Care Code Acute Code for [facility] Diagnoses CHF (congestive heart failure) I50.9 NSTEMI (non-ST elevated myocardial infarction) I21.4 POLO (acute kidney injury) N17.9 Mitral regurgitation I34.0
[2023-10-29] MEDS: atorvastatin 40 mg Tablet 80 MG PO (09:00)
[2023-10-29] MEDS: metoprolol tartrate 25 mg Tablet PO ×2 (09:00→21:46)
[2023-10-29] MEDS: sennosides-docusate Tablet 1 TAB PO (09:00)
[2023-10-29] MEDS: aspirin 81 mg EC Tablet PO (09:00)
[2023-10-29] MEDS: clopidogrel 75 mg Tablet PO (09:01)
[2023-10-29] MEDS: pantoprazole DR 40 mg Tablet PO ×2 (09:01→17:59)
[2023-10-29] MEDS: FUROsemide 10 mg/mL SDV 4mL 40 MG IVP (09:01)
--- NOTE | 2023-10-29 11:01 | PC.CHAP ---
Pastoral Care Encounter/Spiritual Assessment Type of Contact [] Declined e commerce manager visit [] Patient/Family/Request visit [] Outpatient visit [] Follow-up visit [] Physician referral [] Code/Alert [x] Routine visit [] Staff referral [] Actively dying [] Patient sleeping [x] Family support [] [] Out of room [] Palliative care [] [] Receiving care in room [] Pre-surgical visit [] Trauma [] Long length of stay [] ICU visit [] Other: Relational/Emotional Strength [x] Patient feels connected with others/family/visitors/staff [] Distress [] Loneliness/isolation [] Abandonment Spirituality of Patient [x] Person of [place] [] Attends Roman Catholic of their [place] [x] Believes in Prayer [] Reads Bible or Orthodoxy materials [] There are Spiritual issues to be addressed 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 [employer] Interventions [x] Prayer [x] Active listening [] Non-anxious presence [x] Spiritual/emotional support [] Crisis/trauma care [] Spiritual counseling [] Bereavement support [] Provided bereavement packet [] Provided Bible/devotional materials [] Provided toy/stuffed animal, coloring book to patient or family member [] Provided Communion [] Anointing/[place] [] Salvation [] Completed spiritual assessment [] Other: Impact on Illness or Injury [] Angry [] Fearful [] Anxious [] Often cries [] Exhaustion [] Unable to work [] Unable to attend samaritan [] Unable to walk/stand [] Unable to read [] Unable to drive [] Unable to eat/drink [] Unable to sleep [] Unable to be with family [] Patient intubated [] Other: Summary Time spent with patient 15 min
--- NOTE | 2023-10-29 11:11 | P.PN_ITS ---
Subjective 2 Subjective: Patient is stating that he is feeling much better today he is endorsing feeling better 50 minutes after dobutamine drip was started, he is not on oxygen requires oxygen intermittently overnight Adequate diuresis Plan is to continue dobutamine drip for 1 more day LifeVest to be arranged Vitals/I&O/Wt Last Vital Signs Temp 98.1 F 10/29/23 08:00 Pulse 106 H 10/29/23 08:03 Resp 18 10/29/23 08:03 BP 118/78 10/29/23 08:00 Pulse Ox 100 10/29/23 08:03 O2 Del Method Nasal Cannula 10/29/23 08:03 O2 Flow Rate 1 10/29/23 08:03 FiO2 2 10/28/23 20:11 10/28/23 10/29/23 10/29/23 22:59 06:59 14:59 Intake Total 970 / 970 175 / 1145 240 / 240 Output Total 600 / 750 0 / 750 Balance 370 / 220 175 / 395 240 / 240 Weight last 48 hrs Weight 74.616 kg Weight 73.799 kg Physical Exam 2 Narrative: Patient clinically does not look fluid overloaded Currently on room air Eating breakfast GCS 15 Sitting in a recliner Abdomen soft Pleasant and cooperative S1, S2 Data 10/29/23 03:48 10/29/23 03:48 A&P Assessment and plan (1) CHF (congestive heart failure): (2) Biatrial enlargement: (3) Non-ischemic cardiomyopathy: (4) Mitral regurgitation: (5) Severe mitral regurgitation: (6) NSTEMI (non-ST elevated myocardial infarction): (7) PVC (premature ventricular contraction): (8) Ascending aorta dilation: (9) Low left ventricular ejection fraction: (10) POLO (acute kidney injury): Plan Non-STEMI Nonischemic cardiomyopathy Severely reduced EF LifeVest order has been placed Status post right heart cath which showed severe volume overload Continue diuresis along dobutamine drip for 1 more day POLO, rule out contrast-induced nephropathy, creatinine stable at 1.6 Depending on his creatinine dose of lisinopril or Entresto will be decided along spironolactone considering reduced EF, cardiology is also following along Intermittent use of oxygen overnight Currently patient is on room air Will need home oxygen evaluation at discharge Full code Cardiac diet Plan to discharge by tomorrow if creatinine improves and patient clinically feeling better, LifeVest is needed as well Monitor for any signs of arrhythmia on dobutamine drip Attestations 2 Medical Necessity Statement*: Continue medical management Diagnoses CHF (congestive heart failure) I50.9 Biatrial enlargement I51.7 Non-ischemic cardiomyopathy I42.8 Mitral regurgitation I34.0 Severe mitral regurgitation I34.0 NSTEMI (non-ST elevated myocardial infarction) I21.4 PVC (premature ventricular contraction) I49.3 Ascending aorta dilation I77.810 Low left ventricular ejection fraction R94.30 POLO (acute kidney injury) N17.9
[2023-10-29] MEDS: potassium chloride ER 20 mEq Tablet 40 MEQ PO (14:32)
[2023-10-29 18:07] LABS: Anion Gap 18.2 (5-19); Blood Urea Nitrogen 44 mg/dL (8-23); Calcium 8.6 mg/dL (8.5-10.5); Carbon Dioxide 24 mmol/L (22-29); Chloride 101 mmol/L (98-107); Glucose 111 mg/dL (65-115); Osmolality Calculated 300 mOsm/kg (285-295); Potassium 4.2 mmol/L (3.5-5.1); Sodium 139 mmol/L (136-145)
[2023-10-30] VITALS (11 sets, daily range): BP systolic 99–126; BP diastolic 62–80; PULSE 81–107; RESP 16–28; TEMP 36.4–36.6; O2SAT 86–100
[2023-10-30] MEDS: DOBUTamine drip 500 MG/250 ML PREMIX 5.54 MG IV (02:16)
[2023-10-30 04:37] LABS: Basophils % 0.1 %; Eosinophils # 0.1 10^3/uL (0.0-0.8); Eosinophils % 1.1 %; Hematocrit 33.3 % (37-53); Lymphocytes # 0.9 10^3/uL (0.8-4.8); Lymphocytes % 12.4 %; Mean Corpuscular Hemoglobin 31.7 pg (27-33); Mean Platelet Volume 11.9 fL (7.4-10.4); Monocytes # 0.7 10^3/uL (0.2-0.9); Monocytes % 9.1 %; Nucleated Red Blood Cells % 0 %; Platelet Count 124 10^3/cmm (157-399); Red Blood Count 3.47 10^6/uL (3.85-5.65); Red Cell Distribution Width 14.4 % (12.1-15.1); White Blood Count 7.27 10^3/uL (3.29-11.43)
[2023-10-30 04:57] LABS: Anion Gap 13.1 (5-19); Blood Urea Nitrogen 43 mg/dL (8-23); Calcium 8.5 mg/dL (8.5-10.5); Carbon Dioxide 27 mmol/L (22-29); Chloride 104 mmol/L (98-107); Glucose 88 mg/dL (65-115); Osmolality Calculated 300 mOsm/kg (285-295); Potassium 4.1 mmol/L (3.5-5.1); Sodium 140 mmol/L (136-145)
[2023-10-30 05:06] LABS: Magnesium 2.2 mg/dL (1.7-2.3)
[2023-10-30] MEDS: heparin 5,000 unit/mL INJ 1 mL 5000 UNIT SUBCUT ×2 (05:31→17:51)
[2023-10-30] MEDS: metoprolol tartrate 25 mg Tablet PO ×2 (09:04→19:54)
[2023-10-30] MEDS: clopidogrel 75 mg Tablet PO (09:04)
[2023-10-30] MEDS: losartan 50 mg Tablet 25 MG PO (09:04)
[2023-10-30] MEDS: aspirin 81 mg EC Tablet PO (09:05)
[2023-10-30] MEDS: pantoprazole DR 40 mg Tablet PO ×2 (09:05→17:52)
[2023-10-30] MEDS: atorvastatin 40 mg Tablet 80 MG PO (09:05)
--- NOTE | 2023-10-30 09:57 | PM.PN ---
Subjective Subjective: Patient is stable. No chest pain. Vitals/I&O/Wt Last Vital Signs Temp 97.8 F 10/30/23 07:12 Pulse 93 10/30/23 07:12 Resp 28 H 10/30/23 07:12 BP 126/80 10/30/23 07:12 Pulse Ox 100 10/30/23 07:12 O2 Del Method Nasal Cannula 10/30/23 07:12 O2 Flow Rate 1 10/29/23 08:03 FiO2 2 10/28/23 20:11 10/29/23 10/30/23 10/30/23 22:59 06:59 14:59 Intake Total 725 / 965 483.928 / 1448.928 240 / 240 Output Total 590 / 1090 125 / 1215 Balance 135 / -125 358.928 / 233.928 240 / 240 Weight last 48 hrs Weight 153 lb 6 oz Weight 164 lb 8 oz Physical Exam Narrative: GENERAL: Patient is alert, awake and oriented x3. NECK: No jugular vein distension. [] HEENT: No cyanosis. No icterus. No pallor. [] HEART: Regular S1 and S2. Grade 3/6 systolic murmur LUNGS: Clear to auscultate bilaterally. [] CENTRAL NERVOUS SYSTEM: Grossly nonfocal. [] EXTREMITIES: Lower extremities with no edema Data 10/31/23 03:50 10/31/23 03:50 A&P Assessment and plan (1) CHF (congestive heart failure): (2) NSTEMI (non-ST elevated myocardial infarction): (3) POLO (acute kidney injury): (4) Mitral regurgitation: Plan Patient is overall stable. Will continue with current medications including dual antiplatelet therapy, atorvastatin and beta-eran. Losartan has been initiated. Monitor renal function closely. We will switch Lasix to p.o. May need to be as needed. LifeVest put on today. Will need outpatient workup for mitral regurgitation. Thank you for involving us with care of this patient. We will continue to follow. Please call with questions. Attestations Medical Necessity Statement*: Care expected to cross 2 midnights. Coding Level of Care Code Acute Code for [facility] Fwd Diagnoses CHF (congestive heart failure) I50.9 NSTEMI (non-ST elevated myocardial infarction) I21.4 POLO (acute kidney injury) N17.9 Mitral regurgitation I34.0
--- NOTE | 2023-10-30 19:06 | PC.NURSE ---
shift note pt has been off dobutamine drip since this morning per doctor Smith's order. Pt stated he feels much better this afternoon. denies any pain or shortness of breath. pt does require 2 L/min of oxygen per home o2 eval. educated pt and family in regards to fluid restriction and low salt intake for his chf. pt provided chf stoplight. Called doctor smith if pt needs his 40 IV lasix this evening as scheduled. He replied back to dc IV lasix and administer 40mg of oral lasix this evening.
[2023-10-30] MEDS: FUROsemide 40 mg Tablet PO (19:54)
--- NOTE | 2023-10-30 21:22 | P.PN_ITS ---
Subjective 2 Subjective: He reports he is feeling somewhat more tired noted dobutamine has been stopped. No chest pain. Reports that prior to his current condition he was active, in good shape. Vitals/I&O/Wt Last Vital Signs Temp 97.9 F 10/30/23 20:00 Pulse 90 10/30/23 20:00 Resp 27 H 10/30/23 20:00 BP 110/70 10/30/23 20:00 Pulse Ox 100 10/30/23 20:00 O2 Del Method Nasal Cannula 10/30/23 20:00 O2 Flow Rate 2 10/30/23 20:00 FiO2 2 10/28/23 20:11 10/30/23 10/30/23 10/30/23 06:59 14:59 22:59 Intake Total 483.928 / 1448.928 528.66 / 528.66 437.34 / 966.00 Output Total 125 / 1215 250 / 250 100 / 350 Balance 358.928 / 233.928 278.66 / 278.66 337.34 / 616.00 Weight last 48 hrs Weight 69.57 kg Weight 74.616 kg Physical Exam 2 Narrative: Up in a chair. Being fitted for a LifeVest. Const: COMMON NORMALS: patient oriented x3 and alert GENERAL APPEARANCE: c ooperative ORIENTATION/CONSCIOUSNESS: Yes awake HENMT: COMMON NORMALS: oropharynx normal Neck/C-Spine: COMMON NORMALS: no JVD Resp: COMMON NORMALS: normal respiratory effort and clear to auscultation bilaterally AUSCULTATION: clear to auscultation bilaterally Cardio: COMMON NORMALS: no JVD, regular rhythm, S1 normal heart sound present, S2 normal heart sound present and No murmurs present (Cardio) RHYTHM: regular rhythm HEART SOUNDS: S1 normal heart sound present and S2 normal heart sound present GI: COMMON NORMALS: Normal to inspection, nondistended, normoactive bowel sounds present, Soft to palpation and non-tender PALPATION: Yes Soft to palpation Extremity: COMMON NORMALS: no joint enlargement and no pedal edema Neuro: COMMON NORMALS: patient oriented x3 and moves all extremities S ENSORIUM/ORIENTATION: Yes alert Skin: COMMON NORMALS: no rashes or lesions noted GENERAL SKIN EXAM: no rashes or lesions noted Data 10/30/23 03:55 12/28/23 03:55 A&P Assessment and plan (1) CHF (congestive heart failure): (2) Biatrial enlargement: (3) Non-ischemic cardiomyopathy: (4) Mitral regurgitation: (5) Severe mitral regurgitation: (6) NSTEMI (non-ST elevated myocardial infarction): (7) PVC (premature ventricular contraction): (8) Ascending aorta dilation: (9) Low left ventricular ejection fraction: (10) POLO (acute kidney injury): Plan Non-STEMI Nonischemic cardiomyopathy Severely reduced EF Has been fitted for LifeVest. Will need follow-up with cardiology for reassessment of cardiomyopathy. Weaned off dobutamine today. Discussed with cardiology. Reviewed vitals, CBC, BMP. Magnesium. Reviewed cardiology note. Received Lasix. Recheck renal function, at risk of renal dysfunction. Recheck electrolytes, at risk of electrolyte [place]. Maintain LifeVest. Recheck CBC, BMP. Started on losartan. Recheck renal function. Risk of creatinine elevation. Monitor blood pressure. Qualifies for oxygen. Oxygen needs to be ordered in the morning. Discussed with immigration case worker. Full code Cardiac diet Attestations 2 Medical Necessity Statement*: Continue admission for assessment management of monica with new nonischemic cardiomyopathy, weaned off dobutamine, optimization of goal-directed medical therapy, in the setting of POLO, post discharge planning and arrangements. Diagnoses CHF (congestive heart failure) I50.9 Biatrial enlargement I51.7 Non-ischemic cardiomyopathy I42.8 Mitral regurgitation I34.0 Severe mitral regurgitation I34.0 NSTEMI (non-ST elevated myocardial infarction) I21.4 PVC (premature ventricular contraction) I49.3 Ascending aorta dilation I77.810 Low left ventricular ejection fraction R94.30 POLO (acute kidney injury) N17.9
--- NOTE | 2023-10-30 23:10 | PC.NURSE ---
Patient zole life vest equipment battery was malfunctioning displaying that the battery is defective. [employer]ole was called by patient and nurse. Second battery was placed in monitor and displayed that it was also defective. [employer] was called again. Per dimitry associate, patient has been moved to critical and a [employer] account services representative will be coming to replace system AGNES as stated by [employer] account services representative.
[2023-10-31] VITALS (8 sets, daily range): BP systolic 97–130; BP diastolic 53–69; PULSE 62–94; RESP 16–28; TEMP 36.4–36.7; O2SAT 98–100
[2023-10-31 04:02] LABS: Basophils % 0.3 %; Eosinophils # 0.1 10^3/uL (0.0-0.8); Eosinophils % 0.9 %; Hematocrit 35.1 % (37-53); Lymphocytes # 1.2 10^3/uL (0.8-4.8); Lymphocytes % 15.9 %; Mean Corpuscular HGB Conc 32.8 g/dL (30-55); Mean Corpuscular Hemoglobin 32.1 pg (27-33); Mean Platelet Volume 11.5 fL (7.4-10.4); Monocytes # 0.7 10^3/uL (0.2-0.9); Monocytes % 8.9 %; Neutrophils # 5.58 10^3/uL (1.8-7.7); Neutrophils % 73.7 %; Nucleated Red Blood Cells % 0 %; Platelet Count 129 10^3/cmm (157-399); Red Blood Count 3.58 10^6/uL (3.85-5.65); Red Cell Distribution Width 14.5 % (12.1-15.1); White Blood Count 7.56 10^3/uL (3.29-11.43)
[2023-10-31 04:20] LABS: Blood Urea Nitrogen 49 mg/dL (8-23); Calcium 8.8 mg/dL (8.5-10.5); Carbon Dioxide 24 mmol/L (22-29); Chloride 102 mmol/L (98-107); Glucose 94 mg/dL (65-115); Osmolality Calculated 297 mOsm/kg (285-295); Sodium 137 mmol/L (136-145)
[2023-10-31] MEDS: heparin 5,000 unit/mL INJ 1 mL 5000 UNIT SUBCUT (05:48)
--- NOTE | 2023-10-31 08:30 | P.PN_ITS ---
Subjective 2 Subjective: Patient is doing well. No chest pain. Has lifevest Vitals/I&O/Wt Last Vital Signs Temp 98.0 F 10/31/23 08:00 Pulse 62 10/31/23 03:29 Resp 21 H 10/31/23 08:00 BP 127/63 10/31/23 08:00 Pulse Ox 98 10/31/23 03:29 O2 Del Method Room Air 10/31/23 03:29 O2 Flow Rate 2 10/30/23 20:00 FiO2 2 10/28/23 20:11 10/30/23 10/31/23 10/31/23 22:59 06:59 14:59 Intake Total 637.34 / 1166.00 100 / 1266.00 Output Total 100 / 350 375 / 725 Balance 537.34 / 816.00 -275 / 541.00 Weight last 48 hrs Weight 155 lb 4.8 oz Weight 153 lb 6 oz Physical Exam 2 Narrative: GENERAL: Patient is alert, awake and oriented x3. NECK: No jugular vein distension. [] HEENT: No cyanosis. No icterus. No pallor. [] HEART: Regular S1 and S2. Grade 3/6 systolic murmur LUNGS: Clear to auscultate bilaterally. [] CENTRAL NERVOUS SYSTEM: Grossly nonfocal. [] EXTREMITIES: Lower extremities with no edema Data 10/31/23 03:50 10/31/23 03:50 A&P Assessment and plan (1) CHF (congestive heart failure): (2) NSTEMI (non-ST elevated myocardial infarction): (3) POLO (acute kidney injury): (4) Mitral regurgitation: Plan Patient had presented with non-ST elevation GA. Coronary angiogram demonstrated patent coronary arteries. Possibility of myocarditis cannot be ruled out. Will benefit from outpatient cardiac MRI. Volume status has improved significantly. Lasix as needed. Patient has left bundle branch block. Patient is being discharged on LifeVest. If cardiac function does not improve with medical therapy, will benefit from [employer]. He has moderate to severe mitral regurgitation. Further workup with transesophageal echocardiogram. Continue dual antiplatelet therapy, atorvastatin, losartan and metoprolol. Lasix as needed. Thank you for involving us with care of this patient. Patient is stable to be discharged from cardiology standpoint with close follow-up with cardiology. Please call with questions. Attestations 2 Medical Necessity Statement*: Care expected to cross 2 midnights. Coding Level of Care Code Acute Code for [facility] Fwd Diagnoses CHF (congestive heart failure) I50.9 NSTEMI (non-ST elevated myocardial infarction) I21.4 POLO (acute kidney injury) N17.9 Mitral regurgitation I34.0
[2023-10-31] MEDS: sennosides-docusate Tablet 1 TAB PO (10:13)
[2023-10-31] MEDS: atorvastatin 40 mg Tablet 80 MG PO (10:13)
[2023-10-31] MEDS: losartan 50 mg Tablet 25 MG PO (10:13)
[2023-10-31] MEDS: clopidogrel 75 mg Tablet PO (10:14)
[2023-10-31] MEDS: pantoprazole DR 40 mg Tablet PO (10:14)
[2023-10-31] MEDS: metoprolol tartrate 25 mg Tablet PO (10:14)
[2023-10-31] MEDS: aspirin 81 mg EC Tablet PO (10:14)
--- NOTE | 2023-10-31 14:59 | P.DS_ITS ---
Discharge Providers Date of Admission: 10/25/23 19:02 Date of Discharge: October 31, 2023 Attending Provider at Admission: Branden De La Cruz MD Attending Provider at Discharge: Kendell Ureña Diagnoses at Discharge Discharge Diagnosis (1) CHF (congestive heart failure): Status: Acute (2) NSTEMI (non-ST elevated myocardial infarction): Status: Acute (3) POLO (acute kidney injury): Status: Acute (4) Mitral regurgitation: Status: Acute Reason for Visit Reason for Visit: Brief History: Evangelist Segura is a 83 year old male with history of gout and GERD retired 1984 [employer], presented with chief complaint of chest discomfort. Patient stating that 2 days ago he had a horrible oily pizza at that aggravated his symptoms of acid reflux, GERD he was experiencing chest discomfort with fullness and bloating which was not getting better he also felt some pain in his left arm, he tolerated this pain all night, in the morning his convinced him to go to the ER, patient is stating that his real bothering symptoms started 1 month ago with dry hacking cough, he has been tested for COVID which was negative, he has not noticed any fever, malaise, today had 1 loose stool. At the [facility] he was diagnosed with non-STEMI, he has been transferred to our facility for management evaluation of non-STEMI and cardiac cath. Dr. Smith is aware. At the time of my evaluation patient is tachycardic with multiple PVCs on telemetry, no active chest pain, I have removed Nitropaste. He is hemodynamically stable. Patient does not smoke or drink alcohol, no previous history of CHF or coronary artery disease Hospital Course Hospital Course During hospitalization he was assessed by cardiology, with finding of severe cardiomyopathy, on echocardiogram EF down to 20-25%, RV grossly hypokinetic, biatrial enlargement, moderate to severe mitral regurgitation. Mild AVR, mild TVR, mild PVR. Mild pulmonary hypertension. Underwent coronary angiography which showed patent coronaries. During hospitalization treated for congestive heart failure, additionally underwent right heart cath. Transient support with dobutamine, continued with IV diuretics. Overall condition gradually improved. Acute kidney injury on presentation stabilized, without improvement, but hovering around 1.6. Still requiring 2 L nasal cannula oxygen at discharge. He is asked to follow-up with cardiology for nonischemic cardiomyopathy, he would like to follow-up in [place], including for further workup of nonischemic c ardiomyopathy, but as there is no earlier appointment will follow-up here first in 1 week. He is at risk of adverse effects given severe cardiomyopathy, including arrhythmia, potentially life-threatening, set up with LifeVest. At risk of congestive heart failure decompensation, other complications discussed with him. At risk of readmission and mortality. Physical Exam Narrative: Reports he is doing well today. No signs of fluid overload. Const: COMMON NORMALS: patient oriented x3 and alert GENERAL APPEARANCE: cooperative ORIENTATION/CONSCIOUSNESS: Yes awake HENMT: COMMON NORMALS: oropharynx normal Neck/C-Spine: COMMON NORMALS: no JVD Resp: COMMON NORMALS: normal respiratory effort and clear to auscultation bilaterally AUSCULTATION: clear to auscultation bilaterally Cardio: COMMON NORMALS: no JVD, regular rhythm, S1 normal heart sound present, S2 normal heart sound present and No murmurs present (Cardio) RHYTHM: regular rhythm HEART SOUNDS: S1 normal heart sound present and S2 normal heart sound present GI: COMMON NORMALS: Normal to inspection, nondistended, normoactive bowel sounds present, Soft to palpation and non-tender PALPATION: Yes Soft to palpation Extremity: COMMON NORMALS: no joint enlargement and no pedal edema Neuro: COMMON NORMALS: patient oriented x3 and moves all extremities SENSORIUM/ORIENTATION: Yes alert Skin: COMMON NORMALS: no rashes or lesions noted GENERAL SKIN EXAM: no rashes or lesions noted Discharge Data Studies Completed and Pending Completed Studies During Hospitalization Category Date Time Status XR chest 1V portable [id number] Routine Exams 10/25/23 20:41 Completed CV. 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 Fullness in the pulmonary vasculature suggesting volume overload in the lungs. 2. Small left pleural effusion. 3. Incidental/nonacute findings are listed in the report. Renal Ultrasound 10/27/23 13:23 IMPRESSION: Unremarkable kidneys and bladder. Laboratory Results WBC 7.56 10^3/uL (3.29-11.43) 10/31/23 03:50 RBC 3.58 10^6/uL (3.85-5.65) L 10/31/23 03:50 Hgb 11.50 g/dL (11.27-16.99) 10/31/23 03:50 Hct 35.1 % (37-53) L 10/31/23 03:50 MCV 98.0 fl (82-101) 10/31/23 03:50 MCH 32.1 pg (27-33) 10/31/23 03:50 MCHC 32.8 g/dL (30-55) 10/31/23 03:50 RDW 14.5 % (12.1-15.1) 10/31/23 03:50 Plt Count 129 10^3/cmm (157-399) L 10/31/23 03:50 MPV 11.5 fL (7.4-10.4) H 10/31/23 03:50 Neut % (Auto) 73.7 % 10/31/23 03:50 Lymph % (Auto) 15.9 % 10/31/23 03:50 Vermillion % (Auto) 8.9 % 10/31/23 03:50 Eos % (Auto) 0.9 % 10/31/23 03:50 Baso % (Auto) 0.3 % 10/31/23 03:50 Neut # (Auto) 5.58 10^3/uL (1.8-7.7) 10/31/23 03:50 Lymph # (Auto) 1.2 10^3/uL (0.8-4.8) 10/31/23 03:50 Vermillion # (Auto) 0.7 10^3/uL (0.2-0.9) 10/31/23 03:50 Eos # (Auto) 0.1 10^3/uL (0.0-0.8) 10/31/23 03:50 Baso # (Auto) 0.0 10^3/uL (0.0-0.1) 10/31/23 03:50 Nucleated RBC % (auto) 0 % 10/31/23 03:50 Total Counted 100 (0-100) 10/28/23 08:50 Atypical Lymphs % 1.0 % (0-5) 10/28/23 08:50 Absolute Neutrophils 8.2 10^3/cmm (1.4-6.5) H 10/28/23 08:50 Segmented Neutrophils 81 % 10/28/23 08:50 Abs Segm Neuts (Man) 8.2 10/cmm (1.6-7.1) H 10/28/23 08:50 Band Neutrophils 0.0 % 10/28/23 08:50 Abs Band Neuts (Man) 0.0 10^3/cmm (0.0-1.2) 10/28/23 08:50 Absolute Lymphocytes 1.7 10^3/cmm (1.2-3.4) 10/28/23 08:50 Lymphocytes (Manual) 16 % 10/28/23 08:50 Monocytes (Manual) 2.0 % 10/28/23 08:50 Absolute Monocytes 0.2 10^3/cmm (0.1-0.6) 10/28/23 08:50 Eosinophils (Manual) 0 % 10/28/23 08:50 Absolute Eosinophils 0.0 10^3/cmm (0.0-0.7) 10/28/23 08:50 Basophils (Manual) 0.0 % 10/28/23 08:50 Absolute Basophils 0.0 10^3/cmm (0.0-0.2) 10/28/23 08:50 Nucleated RBCs # 0.0 /100WBC 10/31/23 03:50 Platelet Estimate Decreased (Normal) 10/28/23 08:50 D-Dimer 0.50 ug/mLFEU (0-0.59) 10/25/23 20:27 Specimen Type Not specified 10/28/23 10:28 Specimen Type Not specified 10/28/23 10:28 Specimen Type Not specified 10/28/23 10:28 Sample Site Not specified 10/28/23 10:28 Sample Site Not specified 10/28/23 10:28 Sample Site Not specified 10/28/23 10:28 Sanchez Test N/a 10/28/23 10:28 Sanchez Test N/a 10/28/23 10:28 Sanchez Test N/a 10/28/23 10:28 A-a O2 Gradient Not Reportable 10/28/23 10:28 A-a O2 Gradient Not Reportable 10/28/23 10:28 A-a O2 Gradient Not Reportable 10/28/23 10:28 Hematocrit 37.9 % (42-52) L 10/28/23 10:28 Hematocrit 38.2 % (42-52) L 10/28/23 10:28 Hematocrit 38.6 % (42-52) L 10/28/23 10:28 Hgb O2 Saturation 33.1 % (95-100) L 10/28/23 10:28 Hgb O2 Saturation 34.8 % (95-100) L 10/28/23 10:28 Hgb O2 Saturation 77.3 % (95-100) L 10/28/23 10:28 Carboxyhemoglobin 0.8 %THgb (0.4-20.1) 10/28/23 10:28 Carboxyhemoglobin 0.9 %THgb (0.4-20.1) 10/28/23 10:28 Carboxyhemoglobin 1.2 %THgb (0.4-20.1) 10/28/23 10:28 Methemoglobin 0.4 % (0.4-1.5) 10/28/23 10:28 Methemoglobin 0.4 % (0.4-1.5) 10/28/23 10:28 Methemoglobin 0.5 % (0.4-1.5) 10/28/23 10:28 Total Hemoglobin 12.4 g/dL (14-18) L 10/28/23 10:28 Total Hemoglobin 12.5 g/dL (14-18) L 10/28/23 10:28 Total Hemoglobin 12.6 g/dL (14-18) L 10/28/23 10:28 O2 Delivery Device Room air 10/28/23 10:28 O2 Delivery Device Room air 10/28/23 10:28 O2 Delivery Device Room air 10/28/23 10:28 FiO2 21.0 % 10/28/23 10:28 FiO2 21.0 % 10/28/23 10:28 FiO2 21.0 % 10/28/23 10:28 Maintenance Controller ID Pulm art 10/28/23 10:28 Maintenance Controller ID R atrium 10/28/23 10:28 Maintenance Controller ID Wedge 10/28/23 10:28 Sodium 137 mmol/L (136-145) 10/31/23 03:50 Potassium 4.0 mmol/L (3.5-5.1) 10/31/23 03:50 Chloride 102 mmol/L (98-107) 10/31/23 03:50 Carbon Dioxide 24 mmol/L (22-29) 10/31/23 03:50 Anion Gap 15.0 (5-19) 10/31/23 03:50 BUN 49 mg/dL (8-23) H 10/31/23 03:50 Creatinine 1.6 mg/dL (0.7-1.2) H 10/31/23 03:50 GFR Calculation Not Reportable 10/31/23 03:50 Glucose 94 mg/dL (65-115) 10/31/23 03:50 Estimat Average Glucose 97 10/25/23 20:27 Hemoglobin A1c 5.0 % (4.0-6.0) 10/25/23 20:27 Calculated Osmolality 297 mOsm/kg (285-295) H 10/31/23 03:50 Calcium 8.8 mg/dL (8.5-10.5) 10/31/23 03:50 Phosphorus 2.8 mg/dL (2.5-4.5) 10/26/23 01:10 Magnesium 2.2 mg/dL (1.7-2.3) 10/30/23 03:55 Troponin T Baseline 1198 ng/L (0-15) H* 10/25/23 20:27 Troponin T 120 Minute 1120 ng/L (0-15) H 10/25/23 21:39 Delta Troponin T -78 ABS# (0-10) L 10/25/23 21:39 Troponin T Hi Sens 6Hr 1081 ng/L (0-15) H 10/26/23 01:10 Troponin T Hi Sens 6Hr Delta -117 ng/L (0-12) L 10/26/23 01:10 NT-Pro-B Natriuret Pep 7921 pg/mL (0-450) H 10/25/23 20:27 Vitamin B12 > 2000 pg/mL (232-1245) H 10/25/23 20:27 TSH 3.77 uIU/mL (0.27-4.20) 10/25/23 20:27 Nasal Influ A H1 2009 PCR Not detected (NOT DETECT) 10/25/23 20:55 Adenovirus (PCR) Not detected (NOT DETECT) 10/25/23 20:55 C. pneumoniae DNA (PCR) Not detected (NOT DETECT) 10/25/23 20:55 Coronavirus 229E (PCR) Not detected (NOT DETECT) 10/25/23 20:55 Human Metapneumovir PCR Not detected (NOT DETECT) 10/25/23 20:55 Influenza A (H1) PCR Not detected (NOT DETECT) 10/25/23 20:55 Influenza A (H3) PCR Not detected (NOT DETECT) 10/25/23 20:55 Influenza Type A (PCR) Not detected (NOT DETECT) 10/25/23 20:55 Influenza Type B (PCR) Not detected (NOT DETECT) 10/25/23 20:55 M. pneumoniae (PCR) Not detected (NOT DETECT) 10/25/23 20:55 Parainfluenza 1 (PCR) Not detected (NOT DETECT) 10/25/23 20:55 Parainfluenza 2 (PCR) Not detected (NOT DETECT) 10/25/23 20:55 Parainfluenza 3 (PCR) Not detected (NOT DETECT) 10/25/23 20:55 Parainfluenza 4 (PCR) Not detected (NOT DETECT) 10/25/23 20:55 RSV Type A (PCR) Not detected (NOT DETECT) 10/25/23 20:55 RSV Type B (PCR) Not detected (NOT DETECT) 10/25/23 20:55 Entero/Rhino (PCR) Not detected (NOT DETECT) 10/25/23 20:55 SARS-CoV-2 (PCR) Not detected (NOT DETECT) 10/25/23 20:55 Procedures Performed Right heart cath findings: RA pressure: 16/12 mean 11 mmHg RV pressure: 53/5 mean 18 mmHg PA pressure: 61/28 mean 39 mmHg PCW: 22/23 mean 21 mmHg Wedge sat: 79% PA sat: 34% RA sat: 35% Cardiac output: 3.14 L/min Cardiac index: 1.7 L/min/m? Conclusion: Low cardiac output and cardiac index. Elevated right and left sided cardiac pressures We will start low dose dobutamine and diurese. Performing Provider: Nathan Smith Estimated blood loss (mL): 10 Complications: None [facility] [address] [place] [address] Ultrasound Report Signed Patient: Evangelist Gale Unit #: [id number] : 1940 Age/Sex: 83 / M ADM Date: 10/25/23 Loc: [facility] Room/Bed: [facility] Attending Dr: Nori Hdez MD Ordering Provider/Ordering MD: Dany Brizuela MD Date of Service: 10/26/23 Procedure(s): CV. echo complete* [id number] Accession Number(s): [id number] Report Number: [id number] Evangelist Gale Age: 83 Gender: M : 1940 Exam Date: 10/26/2023 07:07 Ordering Phys: Dany Brizuela MD Technologist: Alexandru Dahl Exam Location: [facility] Indication: nstemi BP: 130 / 84 HR: 105 Rhythm: Other Technical Quality: Adequate MEASUREMENTS (Male / Female) Normal Values 2D ECHO LVOT Diameter 2.3 cm LV Ejection Fraction MOD 2C 23.4 % LV Ejection Fraction 2C AL 23.9 % LA Diameter 4.0 cm LA Width 4.4 cm LA Height 6.1 cm RA Width 5.1 cm RA Height 5.7 cm Aorta at Sinotubular Diameter 3.0 cm IVC Diameter 2.1 cm M-MODE Aortic Annulus Diameter 3.3 cm LA Ao Ratio MM 1.2 MV E Point Septal Separation 1.4 cm DOPPLER AV Peak Velocity 116.3 cm/s LVOT Peak Velocity 74.0 cm/s AV Area Cont Eq vti 2.3 cm squared AV Area Cont Eq pk 2.6 cm squared MV Peak Velocity 108.0 cm/s MV Area PHT 8.1 cm squared Mitral E to A Ratio 1.6 MV E' Velocity 48.0 cm/s Mitral E to MV E' Ratio 13.2 Mitral E to LV E' Lateral Ratio 8.5 Mitral E to LV E' Septal Ratio 29.5 TR Peak Velocity 318.9 cm/s TR Peak Gradient 40.7 mmHg TR Mean Velocity 235.5 cm/s TR Mean Gradient 26.2 mmHg TR Velocity Time Integral 93.2 cm Right Atrial Pressure 3.0 mmHg Pulmonary Artery Systolic Pressu 43.7 mmHg PV Peak Velocity 73.0 cm/s RV Acceleration Time 0.1 s RV Ejection Time 0.2 s RV AcT/ET 0.4 FINDINGS Left Ventricle Left ventricle is normal in size. LV systolic function is severely reduced with EF of 20 to 25%. Severe global hypokinesis seen. Right Ventricle Grossly hypokinetic Right Atrium Dilated Left Atrium Severely dilated Mitral Valve Structurally normal mitral valve. Moderate to severe mitral regurgitation. Aortic Valve Aortic valve is thickened and calcified. Mild aortic regurgitation. No significant stenosis. Tricuspid Valve Mild tricuspid regurgitation. RVSP is 40 to 45 mmHg. This is consistent with mild pulmonary hypertension Pulmonic Valve Not well-visualized. Mild pulmonic regurgitation. Pericardium Normal Aorta Dilated with ascending aortic diameter of 4.02cm. IVC Appears to be normal CONCLUSIONS LV systolic function is severely reduced with EF of 20 to 25%. RV is grossly hypokinetic. Biatrial enlargement. Moderate to severe mitral regurgitation. Mild aortic regurgitation Mild tricuspid regurgitation. Mild pulmonary hypertension. Mild pulmonic regurgitation Ascending aorta is dilated with diameter of 4.02 cm No comparison studies are available Nathan Smith MD (Electronically Signed) Final Date: 26 October 2023 Vitals Last Vital Signs Temp 97.6 F 10/31/23 12:00 Pulse 94 10/31/23 12:00 Resp 28 H 10/31/23 12:00 BP 130/69 10/31/23 12:00 Pulse Ox 100 10/31/23 08:37 O2 Del Method Nasal Cannula 10/31/23 08:37 O2 Flow Rate 2 10/31/23 08:37 FiO2 2 10/28/23 20:11 Discharge Plan Discharge Patient Disposition: Home Condition: Stable Prescriptions: New losartan 50 mg Tablet 25 mg PO DAILY Qty: 90 0RF atorvastatin 40 mg Tablet 80 mg PO DAILY Qty: 180 0RF clopidogrel 75 mg Tablet 75 mg PO DAILY Qty: 90 0RF aspirin 81 mg Tablet,Delayed Release (Dr/Ec) 81 mg PO DAILY Qty: 90 0RF metoprolol tartrate 25 mg Tablet 25 mg PO BID@0900,2100 Qty: 180 0RF Stool Softener-Laxative 8.6-50 mg Tablet 1 tab PO DAILY Qty: 90 0RF Continued allopurinol 100 mg tablet 100 mg PO BEDTIME Theralith XR 3.75-45-45-49.5 mg Tablet Extended Release 2 tab PO BID Discontinued cimetidine 200 mg Tablet 200 mg PO BEDTIME Discharge Orders: Discharge Order (Routine); Ordered 10/31/23 Ordered By: Kendell Ureña Other Ambulatory Orders: DME: Oxygen (Order) Location: None Selected Ordered By: Kendell Ureña Referrals: Pedro Chang M.D. [Other] - 02/12/24 10:20 am (This is Dr. Chang's first available appointment for a new patient. Your first follow up appointment will be with Dr. Peter. This appointment with Dr. Chang can be discussed at your first follow up. Please arrive about 30 minutes early for paperwork. If you have any questions or concerns about this appointment, you can call the number listed. Thank you.) Rivera Peter [Other] - 11/27/23 11:40 am (Your follow up appointment will be with Dr. Rivera Peter. If you have any questions or concerns about this appointment, you can call the number listed. Thank you.) Nathan Smith M.D [Physician] - (Your Dr. Smith follow up appointment will be scheduled during your Alda Graham appointment. Thank you.) Alda Graham FNP [Nurse Practitioner] - 11/11/23 9:30 am Discharge Diet: Cardiac Discharge Activity: Oxygen as instructed Patient Instructions: Metoprolol (By mouth), Aspirin (By mouth), Laxative, Stool Softeners (By mouth) (Doculax, Colace, Colace Clear, DSS), Losartan (By mouth), Atorvastatin (By mouth), Clopidogrel (By mouth), Heart Failure (DC), Mi tral Regurgitation (GEN), Wearable Cardioverter Defibrillator (GEN), Coronary Angioplasty (DC), CHF Stoplight, Post Angiogram Home Care Instructions, Post Heart Attack Stoplight Activity Restrictions/Additional Instructions: Please follow-up with cardiology in [place], as there is no sooner appointment please follow-up here in 7 to 10 days with nurse cary Graham. Then please follow-up with Dr. Peter for appointment in November. Due to how weak your heart has become you are at risk of complications including congestive heart failure, arrhythmia, low blood pressure. Monitor your blood pressure and heart rate 3 times daily, write down values to bring to your appointment. Continue to wear LifeVest at all times due to increased risk of life-threatening arrhythmia. Wear oxygen as instructed. Target oxygen saturation 92%. Avoid excessive salt and fluid intake. Limit to less than 2000 mg sodium per day. Follow-up with your primary provider also to reassess your volume status, kidney function after kidney injury and electrolytes. Discharge Attestations Time Spent in Discharge Care*: greater than 30 min Quality Metrics Clinical Quality Measures [ No reported AMI, CVA or VTE this stay] Coding Level of Care Code 95141 Total time (in minutes) for Discharge: 50 Diagnoses CHF (congestive heart failure) I50.9 NSTEMI (non-ST elevated myocardial infarction) I21.4 POLO (acute kidney injury) N17.9 Mitral regurgitation I34.0
--- NOTE | 2023-10-31 17:58 | PC.NURSE ---
Discharge Note Patient discharged to [home] via [w/c to POV] accompanied by [spouse and family member]. Discharge instructions reviewed with patient and/or account service representative. Mobile pharmacy medications and/or prescriptions provided. Belongings/home medications returned.
== END 2023-10-31 17:20 | disposition home or self-care (01) | DRG 280 ==
PROVIDERS: Internal Medicine; Admitting Provider Family Medicine; Visit Provider Internal Medicine
PROC: 4A023N7 Measurement of Cardiac Sampling and Pressure, Left Heart, Percutaneous Approach (ICD-10-PCS; principal; 2023-10-26 09:55)
PROC: 4A023N6 Measurement of Cardiac Sampling and Pressure, Right Heart, Percutaneous Approach (ICD-10-PCS; principal; 2023-10-28 10:00)
DX: I21.4 Non-ST elevation (NSTEMI) myocardial infarction (principal); I50.21 Acute systolic (congestive) heart failure; N17.9 Acute kidney failure, unspecified; I42.8 Other cardiomyopathies; M10.9 Gout, unspecified; K21.9 Gastro-esophageal reflux disease without esophagitis; Z87.891 Personal history of nicotine dependence; R00.0 Tachycardia, unspecified; I49.3 Ventricular premature depolarization; I34.0 Nonrheumatic mitral (valve) insufficiency; I77.810 Thoracic aortic ectasia; N18.9 Chronic kidney disease, unspecified; I51.7 Cardiomegaly; I25.10 Atherosclerotic heart disease of native coronary artery without angina pectoris
CPT/HCPCS: 36415; 71045; 76770; 80048; 82607; 82810; 83036; 83735; 83880; 84100; 84443; 84484; 85007; 85025; 85027; 85378; 87486; 87581; 87633; 93005; 93306; 93451; 93458; 94760; 96367; 96372; 96376; 99152; C1751; C1769; C1887; C1894; J1250; J1644; J1650; J1940; J2250; J2270; J3010; J3490; J7030; Q0163; Q9967